=== PATIENT | male | born 1970 | race Caucasian/White ===

== ENCOUNTER 2022-02-05 03:23 | Outpatient (CLI) | payer BC, SELFPAY ==
[2022-02-05 08:21] LABS: Abs Immature Grans 0.05 10^3/uL (0.0-0.06); Absolute Basophil Count 0.06 10^3/uL (0.0-0.2); Absolute Lymphocyte Count 3.27 10^3/uL (1.2-3.4); Absolute Monocyte Count 0.97 10^3/uL (0.1-0.8); Basophils % 0.5; HGB 15.7 g/dL (13.5-17.5); Immature Grans % 0.4; Lymphocytes % 29.1; MCH 32.7 pg (27.0-33.0); MCHC 34.1 % (32.0-36.0); MCV 96 fL (80-95); MPV 8.5 fL (8.0-11.0); Monocytes % 8.6; Neutrophils % 59.4; Platelet Count 275 10^3/uL (130-400); RDW 12.5 % (11.8-14.1); RDW-SD 44.6 fL; WBC 11.23 10^3/uL (4.4-10.8)
[2022-02-05 08:23] LABS: Absolute Eosinophil Count 0.22 10^3/uL (0.0-0.7); Absolute Neutrophil Count 6.67 10^3/uL (1.2-6.7)
[2022-02-05 08:50] LABS: Anion Gap 7.7 mmol/L (3-11); BUN 8 mg/dL (7-18); CO2 26.3 mmol/L (21.0-32.0); CREATININE 0.9 mg/dL (0.70-1.30); Calcium 8.9 mg/dL (8.5-10.1); Calculated LDL 188 mg/dL (<100); Chloride 105 mmol/L (98-107); Cholesterol 282 mg/dL (<200); Estimated GFR 104.05 (mL/min/1.73m2); Glucose 99 mg/dL (74-106); HDL Cholesterol 60 mg/dL (40-60); Potassium 4.3 mmol/L (3.5-5.1); Sodium 139 mmol/L (136-145); Triglyceride 172 mg/dL (<150)
== END 2022-02-05 03:24 | disposition home or self-care (01) ==
LOC: LBO 03:23
PROVIDERS: PCP Nurse Practitioner Family; Visit Provider Nurse Practitioner Family
DX: Z00.00 Encounter for general adult medical examination without abnormal findings (principal); I10 Essential (primary) hypertension
CPT/HCPCS: 36415; 80048; 80061; 83735; 85025

== ENCOUNTER 2023-01-23 06:13 | Day surgery (SDC) | payer BC, SELFPAY ==
--- NOTE | 2023-01-22 17:36 | HPE_ITS ---
Date of service: 01/23/23 Time of Service: 07:24 Assessment and Plan Assessment and plan (1) Colon cancer screening: Status: Acute Assessment and plan: Plan: Colonoscopy w/ general & natural airway. The?patient will be scheduled by my office. The pt understands that they need to do a bowel prep and the importance of hydration during this.? The patient understands there is a theoretical risk of renal failure.? For healthy patients we use Gatorade/Miralax Prep.? ?For anyone with renal concerns- GoLytely will be used. Plavix and coumadin will need to be held except in unusual circumstances. ? Patients in A. Fib do not need to be bridged with Lovenox or on CVA prophylaxis.? A baby ASA can be continued but full dose ASA needs to be stopped for 10 days prior to the procedure. A complete H & P is required within 30 days of the procedure.? GETA w/natural airway is used for the colonoscopy.? Informed consent is obtained for the procedural (explained in simple layman's terms that?the pt and/or family could understand) explaining risks vs benefits and alternatives to the procedure and consequences if we do not do the procedure and need/rational for the procedure. Risks include but are not limited to: bleeding, infection, perforation of colon.? This would necessitate emergency surgery to repair the damage w/ possible ostomy; and other associated complications w/ the required surgery. ? Also complications of anesthesia including aspiration, ND/CVA/, inability to complete the procedure. I discussed with the?patient would they could expect during the procedure, post procedure and recovery time and risks.? The patient understands that they need to have a ride home after the procedure.? The patient was given all this information in writing and expressed understanding. If there are any questions or concerns please feel free to contact our office.? Generally Colonoscopy does not require antibiotics prophylaxis, (2) Smoker: Status: Acute (3) Hyperlipidemia: Status: Acute (4) Insomnia: Status: Acute (5) Hypertension: Status: Chronic (6) Erectile dysfunction: Status: Acute History of Present Illness Narrative: Patient is here today for colonoscopy for CRC screening.??? They completed a bowel prep with just a clear yellow residual effluent.? They not having any chest pain or shortness of breath, currently.? They are not experiencing any fever or chills.? They deny any productive cough or upper respiratory tract infection signs or symptoms.? They are not having abdominal pain, or nausea and vomiting.? They have not had any changes in medications, past medical history or past surgical history since previously being seen in the office. They have not had any accidents or have been in the ER since the clinic pre-operative evaluation. ??I reviewed the procedure with the patient today, including risks and benefits of the procedure, and what they could expect at home for recovery.? All questions are answered to the patient?s satisfaction today, and they are stable to proceed with the proposed procedure. Patient states when he had his appendix out in the second grade he had polyps and they took part of his intestine. He denies any abdominal pain. He denies any problems with constipation or diarrhea. He does not notice blood in the stool. His weight has been stable. Anesthesia: general (without airway) Previous surgical intolerances: No Previous surgical complications: No Pulmonary risk factors: none Planned procedure: Yes Sleep apnea risks: No Can climb one flight of stairs (12-13 steps) in less than 30 seconds without stopping and without symptoms: Yes The surgery proposed for this patient is: low risk Active cardiac conditions: HTN- well controlled Active risk factors: none ASA (acetylsalicylic acid): not used Beta blockers: not used Mr. Leyva is a pleasant 52-year-old gentleman who I did a phone interview for his first screening colonoscopy. He is healthy. His past medical history is significant for hypertension and hyperlipidemia which are both well controlled. He has no family history of colon cancer that he is aware of. He has not had any changes in bowel habits, hematochezia, melena, unintentional weight loss, nausea or vomiting. He has no abdominal pain. He has no cardiovascular history. He has not had any chest pain or shortness of breath at rest or with activity. Review of Systems All systems reviewed & are unremarkable except as noted in HPI and below PFSH All Active Problems (Updated 01/22/23 @ 17:46 by Susan Tran DO) Screening for malignant neoplasm of colon performed (Acute) Colon cancer screening (Acute) Hyperlipidemia (Acute) Smoker (Acute) 1 pack per day Erectile dysfunction (Acute) Insomnia (Acute 03/07/13) Hypertension (Chronic) Medical History Hx of cardiac murmur per pt.f/u with PCP Surgical History H/O vasectomy Appendectomy (~1981) Family History Mother No problems noted. Father Asthma Heart disease Sister Asthma Son No problems noted. Daughter Asthma Maternal Grandfather , 76 Diabetes Paternal Grandfather , 37 No problems noted. Maternal Grandmother Heart disease Paternal Grandmother , 66 No problems noted. Social History Smoking/Tobacco Use Status: Current every day Tobacco Type: cigarettes Quit status: has quit before Second Hand Exposure: No Smoking risk assessment performed?: Yes Alcohol Intake: current Alcohol Intake frequency: a few times a week Alcohol type: beer Drug use: Never Substance use type: does not use Details: pt's mother had N/V post op Caregiver/Support person: No Household members: spouse Housing: house Communication Needs: None Do you need help understanding health information?: Never Pets and animals: Yes Pets and animals: dog(s) Sexually active: Yes Do you think of yourself as: straight/heterosexual Current gender identity: male What is your relationship status?: How often do you talk on the phone with friends or family?: three or more times per week How often do you get together with friends or relatives?: once per week How often do you attend religious or congregation services?: 1-3 times per year Do you belong to any clubs or organized social groups?: yes Panel score (0-1 are the most socially isolated patients): 3 Seatbelt use: always Helmet use: Yes Drive intox or ride w/intox driver/sales workers: No Do you feel safe at home: Yes Do you feel safe in your relationship?: Yes Meds Allergies and Home Medications Allergies Allergy/AdvReac Type Severity Reaction Status Date / Time No Known Allergies Allergy Verified 01/23/23 06:31 Home Medications Medication Instructions Recorded Confirmed Type ibuprofen 800 mg tablet 800 mg PO DIRECTED 03/07/13 01/21/23 History atorvastatin 20 mg tablet 20 mg PO QHS #90 tabs 03/13/22 01/23/23 Rx lisinopril 10 mg tablet 10 mg PO DAILY #90 tabs 06/11/22 01/23/23 Rx tadalafil 10 mg tablet 10 mg PO DAILY PRN sexual activity 12/05/22 01/23/23 Rx #30 tabs Exam Const Other: PHYSICAL EXAM GENERAL APPEARANCE: Alert, healthy appearance, oriented, x 3,? in no acute distress HYDRATION: Well hydrated HEAD, EYES, EARS, NECK, THROAT: Head is normocephalic, pupils equal, round, reactive to light and accommodation, ocular movement intact, sclera clear and no jaundice. ?Dentition intact. LUNGS: normal respiration/normal chest excursion. ?Clear to auscultation bilaterally. ?No wheeze. ?HEART: Regular rate and rhythm. no murmurs ABDOMEN: soft and non-tender to palpation.? Normal bowel sounds.? Time Spent Time spent with Patient: <40 minutes Time was spent: preparing to see the patient(eg.review tests), obtaining and/or reviewing separately otained hiistory, ordering medications,tests, procedures, referring, communicating with other health day care center director, indepentently int erpreting results, counseling the patient and care coordination
--- NOTE | 2023-01-22 17:43 | PDOC.DSDIS_ITS ---
Date of service: 01/23/23 Time of Service: 08:07 Discharge Plan Disposition Patient Disposition: Home Condition: Good Discharge Details Reason For Visit: colon can screening Attending Provider: Susan Tran Primary Care Provider: Edmond Villasenor Home Meds and New Rx's Prescriptions: Continued atorvastatin 20 mg tablet 20 mg PO QHS Qty: 90 3RF ibuprofen 800 MG tablet 800 mg PO DIRECTED Rx Instructions: TAKE AT ONSET OF MIGRAINE lisinopril 10 mg tablet 10 mg PO DAILY Qty: 90 3RF tadalafil 10 mg tablet 10 mg PO DAILY PRN (Reason: sexual activity) Qty: 30 3RF Rx Instructions: administer approximately 30min before sexual activity; do not use more than 1 dose per 24hrs Discontinued bisacodyl [Dulcolax (bisacodyl)] 5 mg tablet,delayed release (DR/EC) 5 mg PO ONCE Qty: 4 0RF Rx Instructions: Take as directed for your colonoscopy polyethylene glycol 3350 17 gram powder in packet 255 g PO DAILY Qty: 15 0RF Rx Instructions: Mix 255 gm in 64 oz of gatorade or juice. Drink as directed Discharge Instructions Additional Instructions: DSU Colonoscopy Post- Op Instructions Instructions for Everyone who is given Anesthesia: For your safety, please do the following for the next twenty-four (24) hours: *Do Not operate a motor vehicle (car, truck, motorcycle, etc.) *Do Not drink alcoholic beverages or use any recreational drugs for the first 24 hours or while taking pain medications. The medications in your body may have a reaction that can be dangerous. *Do Not make any important decisions or sign any important papers. Findings: -Small polyp Follow up: -My office will send a letter in 2 to 3 weeks time with the results of the pathology and when we want you to repeat the colonoscopy. 1. No lifting over 20 pounds or strenuous activity for the first 24 hours after your procedure. After 24 hours there are no restrictions on your activity but you may feel fatigued for a few days. 2. After you arrive home you may have a light meal and return to your normal diet as you can tolerate it without feeling sick to your stomach. 3. You may have a bloated, gaseous feeling in your belly (abdomen) after a colonoscopy. Passing gas and belching will help. Walking or lying down on your left side with your knees flexed may relieve the discomfort. Call the office at [phone] (Office) or [phone] (Hospital) right away if you notice any of the following: a.Vomiting of blood or ?coffee ground stools?. b.Rectal bleeding 1Tbsp, blood clots or continuous bleeding. c.Severe belly (abdominal) pain. d.A hard distended belly (abdomen) and an inability to pass gas. 4. Please don?t expect to have a normal BM (bowel movement) for 2-3 days after your procedure. 5. If there are questions regarding the findings of your procedure, please contact your doctor 6. If you are unable to contact your doctor with a problem, contact the hospital at [phone]. 7. Continue all your regular medications unless directed otherwise. I understand the above instructions and have no questions. Signature of Patient or Adult Escort Name of Responsible Adult Escort Signature of Nurse Date/Time Stand Alone Forms: Anesthesia Discharge InstEvgeny Azul (DSU) Activity:: see above Diet:: see above Discharge Orders Discharge Orders: Discharge Order (Routine); Ordered 01/23/23 Ordered By: Susan M Stoiber DS: Diagnosis Discharge Diagnosis (1) Screening for malignant neoplasm of colon performed: Status: Acute Asessment and Plan: The patient is seen and examined after their colonoscopy.? The patient has been able to pass gas.? They are not having abdominal pain.? They have been able to tolerate liquids and a snack.? They do not have any nausea or vomiting.? They are not having any chest pain or shortness of breath.??? They are not having any rectal bleeding. Their vital signs have been stable-see nursing notes. We discussed findings during their colonoscopy, and any biopsies that were done/polyps that were removed. The patient will be sent a letter with any biopsy results, and when to repeat the colonoscopy.-see discharge instructions. Patient was given explicit instructions to follow-up regarding colonoscopy-refer to discharge instructions.? We reviewed resumption of medications. Patient verbalized understanding and discharged in stable and satisfactory condition- See nursing notes. (2) Smoker: Status: Acute (3) Hyperlipidemia: Status: Acute (4) Insomnia: Status: Acute (5) Hypertension: Status: Chronic (6) Erectile dysfunction: Status: Acute
--- NOTE | 2023-01-22 17:48 | COLE_ITS ---
Date of service: 01/23/23 Time of Service: 08:03 Colonoscopy Report Date of procedure: 01/23/23 Pre-op diagnosis general: CRC screening Post-op diagnosis procedure note: other (Polyp) Surgeon: Susan Tran Anesthesia Type: General:No Airway Estimated blood loss (mL): 1 Pathology: other Complications: None Disposition: same day Prep: Miralax/Dulcolax Procedure Description: After informed consent was obtained the patient was taken to the procedure room and placed in a left decubitous position. Monitors were applied and a time out was done. The patients name, date of , procedure, allergies to medications and metal in their body was reviewed. The patient was then sedated. Once sedated and comfortable a rectal exam was done. External exam was normal. Internal exam revealed a normal sphincter tone and no palpable masses. The prost ate normal. The scope was then introduced and retrofelexed. No internal hemorrhoids were identified. The scope was then advanced to the cecum without difficulty. The TI and appendiceal orifice were identified. The ileocecal valve is present and intact. It was intubated and the terminal ileum appears normal. The prep was BBPS 3 in all segments for total of 9. The scope was then slowly retracted over 12 minutes back into the rectum. He had a flat 5 mm polyp at 70 cm that is removed with a cold biting forcep. All specimen is retrieved and no bleeding is noted. There are no diverticula or AVMs. The mucosa is otherwise pink and healthy. The scope was removed and the patient was woken up and taken back to Same day surgery in stable condition. The patient tolerated the procedure well and there were no immediate complications. Follow up: The patient should follow up in 7-10 years time, path pending unless they develop changes in bowel habits or other new gastrointestinal complaints.
[2023-01-23 06:22] VITALS: BP 158/99; PULSE 78; RESP 17; TEMP 36.2; O2SAT 99
[2023-01-23] MEDS: Lactated Ringers 1,000 ML 80 ML IV (06:43)
--- NOTE | 2023-01-23 07:15 | W.ANESPRE ---
General Info Date of Service Date Performed: 01/23/23 Height: 5 ft 6 in Weight: 71.2 kg Body Mass Index (BMI): 25.3 Surgical Procedure: Operation Date: 01/23/23 07:35 Proposed Procedure Side Surgeon tobi Tran, Meds Allergies and Home Medications Allergies Allergy/AdvReac Type Severity Reaction Status Date / Time No Known Allergies Allergy Verified 01/23/23 06:31 Home Medication Medication Instructions Recorded ibuprofen 800 mg tablet 800 mg PO DIRECTED 03/07/13 atorvastatin 20 mg tablet 20 mg PO QHS #90 tabs 03/13/22 lisinopril 10 mg tablet 10 mg PO DAILY #90 tabs 06/11/22 tadalafil 10 mg tablet 10 mg PO DAILY PRN sexual activity 12/05/22 #30 tabs Current Visit Medications: Current Medications Generic Name Dose Route Start Last Admin Trade Name Freq PRN Reason Stop Dose Admin Hyoscyamine Sulfate 0.125 mg 01/23/23 10:20 Hyoscyamine 0.125 Mg Sl/Oral/Chew SL 02/22/23 10:19 DIRECTED PRN Ringer's Solution 1,000 mls @ 0 mls/hr 01/23/23 06:00 01/23/23 06:43 IV 02/21/23 23:59 80 mls/hr INFUSION ÁLVARO Administration IV Miscellaneous Supplies 1 each 01/23/23 06:00 Iv Access IV 02/21/23 23:59 DIRECTED ÁLVARO Ondansetron HCl 4 mg 01/23/23 10:20 Ondansetron 4 Mg/2 Ml Vial IVP 02/22/23 10:19 Q4H PRN PRN Nausea / Vomiting Sodium Chloride 0 ml 01/23/23 06:00 Normal Saline Flush 10 Ml Syr IV 02/21/23 23:59 PRN PRN Sodium Chloride 0 ml 01/23/23 06:00 Normal Saline 10 Ml Vial IJ 02/21/23 23:59 DIRECTED PRN Sterile Water 0 ml 01/23/23 06:00 Water,Injection,Sterile 10 Ml Vial IJ 02/21/23 23:59 DIRECTED PRN PFSH Active Problems Active Problems: Problem Status Onset Code Screening for malignant neoplasm of colon performed Z12.11 Colon cancer screening Z12.11 Hyperlipidemia E78.5 Smoker F17.200 Erectile dysfunction N52.9 Insomnia 03/07/13 G47.00 Hypertension I10 Medical History Medical History Hx of cardiac murmur per pt.f/u with PCP Surgical History Surgical History H/O vasectomy Appendectomy (~1981) Tobacco Smoking/Tobacco Use Status: Current every day Tobacco Type: cigarettes Passive smoking exposure: No Second hand exposure: No Alcohol Alcohol Intake: current Alcohol intake frequency: a few times a week Alcohol type: beer Substance Use Substance use: Never Substance use type: does not use Details: pt's mother had N/V post op Vital Signs and Lab Results Vital Signs Most Recent Vital Signs in EMR: Most Recent Vital Signs Temp Pulse Resp BP Pulse Ox 36.2 C L 78 17 158/99 H 99 01/23/23 06:22 01/23/23 06:22 01/23/23 06:22 01/23/23 06:22 01/23/23 06:22 Lab Results Blood Type / Crossmatch: No Data to Display Complete Blood Count: No Data to Display Complete Metabolic Panel: No Data to Display Liver Function Panel: No Data to Display Coagulation Panel: No Data to Display Cardiac Panel: No Data to Display Arterial Blood Gas: No Data to Display Venous Blood Gas: No Data to Display Pancreas Panel: No Data to Display Thyroid Panel: No Data to Display Infectious Disease: No Data to Display Blood Cultures: No Data to Display Toxicology Panel: No Data to Display Anesthesia Assessment and Plan Anesthesia History Personal History: No History of Anesthesia Complications Family History: Other Exercise Tolerance Exercise Tolerance: Metabolic Equivalents>4 Pertinent Negatives Pertinent Negatives: No Symptoms of GERD and No Major Pulmonary Symptoms or Complaints Cardiac & Pulmonary Exam Cardiac Exam: Normal S1/S2 Heart Sounds Pulmonary Exam: Clear Bilateral Breath Sounds Implantable Cardiac Device Does patient have a Pacemaker or an ICD?: No Airway Exam Known Difficult Airway: No Mallampati Class: 2 Mouth Opening: Normal (> 3cm) Thyromental Distance: Greater than 3 cm Neck Range of Motion: Full ROM Neck Circumference: Normal Teeth Condition: Normal Dentition ASA Classification ASA Score: ASA 2 Emergency Case?: No NPO Status NPO Status: NPO Clears >2 hours, Solids >8 hours Anesthesia Plan Resuscitation Status: Full Code Anesthesia Technique: General Anesthesia Airway Planned: Natural Airway Monitors Used: Standard Monitors
[2023-01-23 07:16] VITALS: BMI 25.3
--- NOTE | 2023-01-23 07:42 | BOWEL_PTH ---
PATIENT: Brian Leyva JR LOC: [facility] U#:[id number] AGE/SX: 52/M ROOM: RE01/23/[address]: Susan Tran : 1970 BED: DIS: 01/23/2023 SPEC #: [id number] RECD: 01/23/23 12:51 STATUS: ABIGAIL REQ #: [id number] PERCY: 01/23/23 07:[address]: Susan Tran DEPT: Surgical Specimen RECD BY: Shaylee More ENTERED: 01/23/23 12:51 SP TYPE: Bowel OTHR DR: Edmond Villasenor, [employer]ATING [employer] OPERATOR Tissues: 1 - BIOPSY BOWEL Procedures: GROSS AND MICRO LEVEL 4 Comments: [id number]
[2023-01-23 08:00] VITALS: BP 124/93; PULSE 68; RESP 16; TEMP 36.4; O2SAT 99
--- NOTE | 2023-01-23 08:29 | W.ANESPOSTOP ---
Postoperative Evaluation Date, Time and Location Date Performed: 01/23/23 Time Performed: 08:15 Patient Location: Day Surgery Unit Vital Signs Most Recent Imported Vital Signs: Most Recent Vital Signs Temp Pulse Resp BP Pulse Ox 36.4 C L 68 16 124/93 H 99 01/23/23 08:00 01/23/23 08:00 01/23/23 08:00 01/23/23 08:00 01/23/23 08:00 Pain Score Most Recent Pain Score: Most Recent Pain Score Pain Level 0 01/23/23 08:00 Assessment Mental Status: Awake (Alert & Oriented to Patient Baseline) Airway and Respiratory Function: Patent airway with normal (patient baseline) respiratory exam Cardiovascular Function: Hemodynamically Stable Hydration Status: Adequately Hydrated Nausea & Vomiting: No Nausea or Vomiting Pain: Pt. Denies Any Pain Peripheral Nerve Block: Patient did not receive a nerve block
[2023-01-23 08:31] VITALS: BP 136/95; PULSE 66; RESP 16; TEMP 36.6; O2SAT 98
== END 2023-01-23 08:50 | disposition home or self-care (01) ==
LOC: SUR 06:14
PROVIDERS: PCP Nurse Practitioner Family; Visit Provider Surgery
PROC: 0DJD8ZZ Inspection of Lower Intestinal Tract, Via Natural or Artificial Opening Endoscopic (ICD-10-PCS; CPT 45378; principal; 2023-01-23 07:30)
DX: Z12.11 Encounter for screening for malignant neoplasm of colon (principal); K63.5 Polyp of colon; F17.210 Nicotine dependence, cigarettes, uncomplicated; I10 Essential (primary) hypertension
CPT/HCPCS: 45380; 00123; 88305; 99221

== ENCOUNTER 2023-03-24 04:54 | Outpatient (CLI) | payer BC, SELFPAY ==
[2023-03-24 08:16] LABS: Hemoglobin A1C 5.8 % (<5.7)
[2023-03-24 09:01] LABS: Calculated LDL 118 mg/dL (<100); Cholesterol 202 mg/dL (<200); Estimated GFR 91.12 (mL/min/1.73m2); HDL Cholesterol 75 mg/dL (40-60); Potassium 4.7 mmol/L (3.5-5.1); Triglyceride 47 mg/dL (<150)
== END 2023-03-24 04:55 | disposition home or self-care (01) ==
LOC: LBO 04:54
PROVIDERS: PCP Nurse Practitioner Family; Visit Provider Nurse Practitioner Family
DX: I10 Essential (primary) hypertension (principal); E78.5 Hyperlipidemia, unspecified; Z13.1 Encounter for screening for diabetes mellitus
CPT/HCPCS: 36415; 80061; 82565; 83036; 84132

== ENCOUNTER 2023-12-08 02:12 | Outpatient (CLI) | payer BC, SELFPAY ==
--- NOTE | 2023-12-08 08:00 | DI.RAD_ITS ---
Exam(s) XR CHEST 2V PA LATERAL EXAM: XR CHEST 2V PA LATERAL CLINICAL HISTORY: Chronic cough,smoker,HYPERTENSION,PREOP TECHNIQUE: 2D digital imaging was performed. Two views. COMPARISON: No exams were available for comparison FINDINGS: HEART: Normal size. Aorta: Not dilated. PULMONARY VASCULATURE: Normal. MEDIASTINUM: Unremarkable. LUNGS: Clear. PLEURAL SPACE: No pleural effusion or pneumothorax. BONE:Unremarkable for age. SOFT TISSUES: Unremarkable. IMPRESSION: No acute abnormality. DATA REPOSITORY: RADIATION DOSE DELIVERED:
== END 2023-12-08 02:32 ==
LOC: DI 02:12
PROVIDERS: PCP Nurse Practitioner Family; Visit Provider Surgery
DX: R05.3 Chronic cough (principal); I10 Essential (primary) hypertension; E78.2 Mixed hyperlipidemia
CPT/HCPCS: 71046

== ENCOUNTER 2024-01-12 06:13 | Day surgery (SDC) | payer BC, SELFPAY ==
--- NOTE | 2024-01-11 10:14 | PDOC.DSDIS_ITS ---
Date of service: 01/12/24 Time of Service: 09:14 Discharge Plan Disposition Patient Disposition: Home Condition: Good Discharge Details Reason For Visit: left inguinal hernia repair Attending Provider: Susan Tran Primary Care Provider: Edmond Villasenor Home Meds and New Rx's Prescriptions: New tramadol 50 mg tablet 50 mg PO Q4H PRNQty: 14 0RF Continued atorvastatin 20 mg tablet 20 mg PO QHS Qty: 90 3RF lisinopril 20 mg tablet 20 mg PO DAILY Qty: 90 3RF ibuprofen 800 mg tablet 800 mg PO DIRECTED Qty: 90 3RF Rx Instructions: TAKE AT ONSET OF MIGRAINE magnesium 200 mg tablet 200 mg PO HS cholecalciferol (vitamin D3) 125 mcg (5,000 unit) capsule 125 mcg PO DAILY vitamin B complex-folic acid [Super B Maxi Complex] 0.4 mg tablet 1 tab PO DAILY tadalafil 10 mg tablet 10 mg PO DAILY PRN (Reason: sexual activity) Qty: 30 3RF Rx Instructions: administer approximately 30min before sexual activity; do not use more than 1 dose per 24hrs Held aspirin 81 mg tablet,delayed release (DR/EC) 81 mg PO DAILY Hold Instructions: Resume on 01/26/24. Discharge Instructions Additional Instructions: Dr. Tran HERNIA REPAIR ? POSTOPERATIVE INSTRUCTIONS Patients who have this type of surgery can usually be expected to return to work within two weeks and have minimal amounts of discomfort. ? ACTIVITY: The day of surgery should be spent resting. However, you can be up for short periods of time, I.E., going to the bathroom or kitchen. Avoid lifting or straining. On the day following surgery, you can be up and about as desired. ? LIFTING: Restrict your lifting to no more than five (5) pounds for two weeks after surgery. ??We will decide when you are done with restrictions and when you can return to work, at your follow-up appointment.? No sexual activity for two weeks.? ? DIET: There are no dietary restrictions following surgery. However, you may want to start with small amounts of liquids to avoid nausea the day of surgery. ? INCISION CARE: You will notice purple skin glue closing the incision.? Do not peel this off- it will wear off on its own.? After 24 hours you may shower. The dressing may be replaced for comfort, but is not necessary. ?An ice bag may be applied to the incision for 72 hours following surgery. ? SIGNS OF INFECTION: It is not unusual to have some black and blue discoloration of the skin around the incision, but also scrotum and penis.? ?It will slowly disappear. If you have any increased redness, drainage, fever (above 100 degrees), please contact your doctor for an examination. ? DISCOMFORT: You may expect to have some mild discomfort at the incision sight. If severe pain develops you should contact your doctor for further instructions. ? URINATION: Patients who have surgery occasionally have problems urinating. If you experience problems and are not able to urinate within 6 hours following your surgery, please call your doctor immediately or go to your nearest Emergency Room for evaluation. ? DRIVING: NO driving for three (3) days after surgery, or if you are still taking narcotic pain medication.? ? MEDICATIONS: Alternate Tylenol 1000mg by mouth every 8 hours and Ibuprofen 600mg every 6 hours. ?Make sure you take ibuprofen with food and not on an empty stomach. ?Take the Tylenol and ibuprofen continuously for the first 72hrs- not just when you have pain.? Use the tramadol for breakthrough pain/pain >7.? Use ICE!?? Twenty minutes on, and then off, continuously for the first 72hours. If you are taking narcotic pain medication, follow the instructions on the label and do not drive. Pain medications can make you very constipated. Make sure you are moving your bowels daily. If not, take Miralax or Milk of Magnesia.?? Anesthesia makes you very constipated.? Take a dose of milk of magnesia the morning after surgery. ? REPORT: Unusual swelling, severe pain, unresolved nausea, signs of infection, or difficulty in urination to your surgeon. Follow up in clinic with Dr. Tran in 2 weeks.? [phone] Activity:: see above Remove Dressings/Wound Care:: 24 hours Shower/Bathe:: 24 hours Diet:: As Tolerated DS: Diagnosis Discharge Diagnosis (1) Hypertension: Status: Chronic (2) Hyperlipidemia: Status: Acute (3) Smoker: Status: Acute (4) Left inguinal hernia: Status: Acute Asessment and Plan: The patient is doing well post-op from their left inguinal hernia repair. ? They are having no nausea or vomiting. They are tolerating liquids and a snack. The pt is not having any chest pain or SOB.? Their pain is adequately controlled. They have been able to urinate.? ?HEENT:? no eye pain/drainage/redness/swelling. Mild sore throat ?Cardio- NSR, no chest pain, BP stable- see VS record ?Pulm: no sob or productive cough. No hemoptysis ?Incision- dressing is c/d/i w/ no excessive bleeding or drainage ?I discussed with the patient the findings at the time of surgery and the patient?s progress. ?We reviewed expectations at home; what the patient could expect for recovery time, and in the post-operative period.? We discussed the importance of walking to avoid blood clots and pneumonia.? We discussed and reviewed the patient's post-operative wound care and dressing needs.?? We reviewed their step-johnston pain management plan, Rx called to the pharmacy of their choice.? We reviewed activi ty and limitations-see discharge instructions. We reviewed warning signs, and when to seek medical attention- see d/c instructions.?? Patient was given a postoperative follow-up appointment. Patient verbalized understanding of their postoperative instructions, how do to take care of themselves and their incision, and the pain management plan. Please see discharge instructions.?
--- NOTE | 2024-01-11 10:18 | ROE_ITS ---
Date of service: 01/12/24 Time of Service: 09:15 Operative Note Operative Note DATE OF PROCEDURE: 01/12/24 PRE-OP DIAGNOSIS: left inguinal hernia POST-OP DIAGNOSIS: same indirect PROCEDURE: open left inguinal hernia repair w/ mesh SURGEON: Susan Ann HEAD ORTHOPEDIC TEAM PHYSICIAN: Sharda Richards ANESTHESIA TYPE: Local By Surgeon, General LMA/ETT and Primary Nerve Block Refer to Anesthesia Record ESTIMATED BLOOD LOSS: 5 PATHOLOGY: none sent COMPLICATIONS: None Patient was transported to: PACU Patient's condition: stable Procedure Description: INDICATIONS: The pt is here today for surgery regarding symptomatic --- inguinal hernia that has failed outpatient conservative medical management and he is here today for repair. Informed consent was obtained, explaining risks and benefits of the procedure including but not limited to bleeding, infection, pneumonia, blood clots, chronic pain, chronic numbness, damage to testicle resulting in removal, recurrence of hernia, reaction to Mesh necessitating removal, and other unforetold complications, and complications of anesthesia-which were addressed by the EMPLOYEE WELFARE MANAGER. The patient is marked in preOp prior to the procedure DESCRIPTION OF PROCEDURE:? The pt is then brought to the operative room suite. Anesthesia was administered per the Department of Anesthesia. ?A nerve block was performed by anesthesia under US guidance. The patient was prepped and draped in the usual sterile fashion using ChloraPrep scrub solution. Pause for the cause was done. He did receive preop IV antibiotics, and 30 mL of .25% Marcaine w/ epinephrine was used for local anesthetization. A #12 blade was used to make an incision over the external ring. Electrocautery used to provide hemostasis and dissect down to the fascia. The fascia was pretty much obliterated and there was nothing to open. The cord is elevated. The nerve was not identified. There small is a cord lipomas.? Electro-cautery is used to provide hemostasis. A Lynette drain was placed around the cord to assist in mobilization. The cord was explored. ?There was is indirect hernia sac on the cord. There is no direct hernia pushing through the floor. The hernia sac is dissected off the cord using a combination of blunt dissection and electrocautery.? Electrocautery is used to provide hemostasis.? He does have a patent process vaginalis that extends all the way down to the testicle and there is a small hydrocele as well. The hydrocele sac is excised off the testicle asa well. There are no contents within the hernia sac.? The hernia sac is than inverted and returned to the abdominal cavity.? A small size plug is than inserted into the defect through the internal ring, and over sewn to tighten up the ring with 2-0 vicryl.? Please see RN notes from Lot number of the Bard mesh patch/plug.? The cord structures are still able to freely move through the ring itself.? The patch was then placed onto the floor, and using 2-0 Vicryl, sewn into the pubic tubercle and the shelving portions of the inguinal ligament, in the standard Lichenstein fashion.? ?The tails of the mesh are brought around the cord, sewn together w/ 2-0 Vicryl, and tucked under the external oblique.? The wound was copiously irrigated. There was no bleeding noted. The drain was removed. All structures are returned to normal anatomical position. The nerve is not sewn into the mesh, nor caught up in any sutures. The external oblique is re-approximated using 2-0 vicryl in a running fashion. ?Deep tissue was approximated with 3-0 Vicryl in a running fashion, and skin was approximated with 4-0 Monocryl in a running subcuticular fashion. Skin glue and sterile dressings are applied. The patient tolerated the procedure without complications to recovery in stable condition. SUSAN ANN, DO
--- NOTE | 2024-01-11 10:19 | HPE_ITS ---
Date of service: 01/12/24 Time of Service: 07:34 Assessment and Plan Assessment and plan (1) Hypertension: Status: Chronic Qualifiers: Hypertension type: primary hypertension Qualified Code(s): I10 - Essential (primary) hypertension (2) Hyperlipidemia: Status: Acute Qualifiers: Hyperlipidemia type: mixed hyperlipidemia Qualified Code(s): E78.2 - Mixed hyperlipidemia (3) Smoker: Status: Acute (4) Left inguinal hernia: Status: Acute Assessment and plan: Risks of the surgery include but are not limited to: Bleeding/infection/pneumonia/damage to blood vessels or bladder or?bowels/blood clots or PE/chronic pain/urinary retention/chronic num bness/reoccurrence/reaction to mesh requiring removal/damage to testicle or sterility/complications of anesthesia.?We also discussed the possibility of postop urinary retention or bruising. ?The pt will have a pre-Op PE to ensure fitness for anesthesia, and preOp cardiac testing as deemed necessary. ?The procedure will be done with abx and under sterile conditions. This is an outpt day surgery.? ??The pt requires a ride home from surgery and someone to stay with the pt for 24 hrs after anesthesia.? No lifting over 5 pounds for 2-3 weeks after surgery.? Also take Miralax postop to avoid constipation. History of Present Illness Narrative: Today: Patient is here today for left inguinal hernia repair. ? They not having any chest pain or shortness of breath, currently.? They are not experiencing any fever or chills.? They deny any productive cough or upper respiratory tract infection signs or symptoms.? They are not having abdominal pain, or nausea and vomiting.? They have not had any changes in medications, past medical history or past surgical history since previously being seen in the office. They have not had any accidents or have been in the ER since the clinic pre-operative evaluation. ??I reviewed the procedure with the patient today, including risks and benefits of the procedure, and what they could expect at home for recovery.? All questions are answered to the patient?s satisfaction today, and they are stable to proceed with the proposed procedure. He has been about the same. Worse in the evening better in the morning. He has no significant pain today. clinic visit 11/22: RN: Pt here for Left inguinal hernia that he noted when he had a coughing spell about 2 months ago. Pt reports pain level today is a 5/10, pain increases with activity. Patient thinks that hernia started after coughing. The coughing is from his EVANGELISTA inhibitor. He does not cough that often he has been on the EVANGELISTA inhibitor for a while. I did advise the patient that if the coughing is that severe and that often that he should think about doing a different medication for his blood pressure as coughing could cause the hernia to recur. Patient is a smoker and has a high risk of hernia recurrence as it is. Patient states she does not cough that often. I do not feel the hernia is from coughing. gets cough from lisonpril. BM- no straining or straining. PSHX appendix. anesthesia- no comp smoker phms no HI?CVA no asthma no cpap no dm The patient presents for evaluation of left-sided hernia. He reports a persistent cough, which is not worsening. He is uncertain if he has undergone a screening CT scan for lung cancer. He denies any issues with bowel movements or urination, including constipation or straining. He has never undergone hernia repair, but has undergone an appendectomy in the past. He denies any complications with anesthesia. His only medical conditions include hypertension and hypercholesterolemia. He denies a history of heart attack, stroke, asthma, or diabetes. He does not require a CPAP mask during sleep. He underwent a colonoscopy last year without any issues. He regularly follows up with his primary care physician. His cough is a side effect of his blood pressure medication, which he describes as a dry, itchy throat. Review of Systems All systems reviewed & are unremarkable except as noted in HPI and below PFSH All Active Problems Chronic cough (Acute) Left inguinal hernia (Acute) Screening for malignant neoplasm of colon performed (Acute ~01/23/23) benign lymphoid tissue (lymph node) 10 years, [place] Hyperlipidemia (Acute) Smoker (Acute) 1 pack per day Erectile dysfunction (Acute) Insomnia (Acute 03/07/13) Hypertension (Chronic) Medical History Hx of cardiac murmur per pt.f/u with PCP Surgical History History of colonoscopy (~01/23/23) H/O vasectomy Appendectomy (~1981) Family History Mother No problems noted. Father Asthma Heart disease Sister Asthma Son No problems noted. Daughter Asthma Maternal Grandfather , 76 Diabetes Paternal Grandfather , 37 No problems noted. Maternal Grandmother Heart disease Paternal Grandmother , 66 No problems noted. Social History Smoking/Tobacco Use Status: Current every day Tobacco Type: cigarettes Quit status: has quit before Second Hand Exposure: Yes Smoking risk assessment performed?: Yes Alcohol Intake: current Alcohol Intake frequency: a few times a week Alcohol type: beer Drug use: Never Substance use type: does not use Details: Smoked cigarette at 0540 this morning. 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 Pets and animals: Yes Pets and animals: dog(s) Sexually active: Yes Do you think of yourself as: straight/heterosexual Current gender identity: male What is your relationship status?: How often do you talk on the phone with friends or family?: three or more times per week How often do you get together with friends or relatives?: three or more times per week How often do you attend congregational or presybeterian services?: 1-3 times per year Do you belong to any clubs or organized social groups?: no Panel score (0-1 are the most socially isolated patients): 2 What type of physical activity do you participate in: none Seatbelt use: always Helmet use: Yes Drive intox or ride w/intox driver education road instructor: No Working smoke detector in home: Yes Firearms in home: Yes Do you feel safe at home: Yes Do you feel safe in your relationship?: Yes Meds Allergies and Home Medications Allergies Allergy/AdvReac Type Severity Reaction Status Date / Time No Known Allergies Allergy Verified 01/12/24 06:18 Home Medications ?Medication ?Instructions ?Recorded ?Confirmed ?Type atorvastatin 20 mg tablet 20 mg PO QHS #90 tabs 03/16/23 01/12/24 Rx ibuprofen 800 mg tablet 800 mg PO DIRECTED #90 tabs 03/16/23 01/08/24 Rx lisinopril 20 mg tablet 20 mg PO DAILY #90 tabs 03/16/23 01/12/24 Rx aspirin 81 mg tablet,delayed 81 mg PO DAILY 11/23/23 01/08/24 History release cholecalciferol (vitamin D3) 125 125 mcg PO DAILY 11/23/23 01/12/24 History mcg (5,000 unit) capsule magnesium 200 mg tablet 200 mg PO HS 11/23/23 01/12/24 History vitamin B complex-folic acid 0.4 1 tab PO DAILY 11/23/23 01/08/24 History mg tablet (Super B Maxi Complex) tadalafil 10 mg tablet 10 mg PO DAILY PRN sexual activity 11/25/23 01/08/24 Rx #30 tabs tramadol 50 mg tablet 50 mg PO Q4H PRN #14 tabs 01/11/24 Rx Exam Narrative Exam Narrative: PHYSICAL EXAM GENERAL APPEARANCE: Alert, healthy appearance, oriented, x 3,? in no acute distress HYDRATION: Well hydrated HEAD, EYES, EARS, NECK, THROAT: Head is normocephalic, pupils equal, round, reactive to light and accommodation, ocular movement intact, sclera clear and no jaundice. ?Dentition intact. LUNGS: normal respiration/normal chest excursion. ?Clear to auscultation bilaterally. ?No wheeze. ?HEART: Regular rate and rhythm. no murmurs ABDOMEN: soft and non-tender to palpation.? Normal bowel sounds.? left inguinal hernia. Time Spent Time spent with Patient: <40 minutes Time was spent: preparing to see the patient(eg.review tests), obtaining and/or reviewing separately otained hiistory, ordering medications,tests, procedures, referring, communicating with other health child care giver, indepentently interpreting results, counseling the patient, care coordination and other
[2024-01-12] VITALS (17 sets, daily range): BP systolic 116–140; BP diastolic 70–86; PULSE 57–76; RESP 16–23; TEMP 36.2–36.8; O2SAT 94–100; BMI 24.5
--- NOTE | 2024-01-12 06:21 | W.ANESPRE ---
General Info Date of Service Date Performed: 01/12/24 Height: 5 ft 5 in Weight: 66.853 kg Body Mass Index (BMI): 24.5 Surgical Procedure: Operation Date: 01/12/24 07:40 Proposed Procedure Side Surgeon p Herniorrhaphy Inguinal w/Mesh Left Susan Tran DO Meds Allergies and Home Medications Allergies Allergy/AdvReac Type Severity Reaction Status Date / Time No Known Allergies Allergy Verified 01/12/24 06:18 Home Medication ?Medication ?Instructions ?Recorded atorvastatin 20 mg tablet 20 mg PO QHS #90 tabs 03/16/23 ibuprofen 800 mg tablet 800 mg PO DIRECTED #90 tabs 03/16/23 lisinopril 20 mg tablet 20 mg PO DAILY #90 tabs 03/16/23 aspirin 81 mg tablet,delayed 81 mg PO DAILY 11/23/23 release cholecalciferol (vitamin D3) 125 125 mcg PO DAILY 11/23/23 mcg (5,000 unit) capsule magnesium 200 mg tablet 200 mg PO HS 11/23/23 vitamin B complex-folic acid 0.4 1 tab PO DAILY 11/23/23 mg tablet (Super B Maxi Complex) tadalafil 10 mg tablet 10 mg PO DAILY PRN sexual activity 11/25/23 #30 tabs tramadol 50 mg tablet 50 mg PO Q4H PRN #14 tabs 01/11/24 Current Visit Medications: Current Medications Generic Name Dose Route Start Last Admin Trade Name Freq PRN Reason Stop Dose Admin Acetaminophen 1,000 mg 01/12/24 06:00 Acetaminophen 500 Mg Tab PO 02/10/24 23:59 PREOP ÁLVARO Gabapentin 600 mg 01/12/24 06:00 Gabapentin 300 Mg Cap PO 02/10/24 23:59 PREOP ÁLVARO Ringer's Solution 1,000 mls @ 80 mls/hr 01/12/24 06:00 IV 02/10/24 23:59 INFUSION ÁLVARO Cefazolin Sodium/Dextrose 2 gm in 50 mls @ 100 mls/hr 01/12/24 06:00 Ancef Duplex IVPB 02/10/24 23:59 PREOP ÁLVARO IV Miscellaneous Supplies 1 each 01/12/24 06:00 Iv Access IV 02/10/24 23:59 DIRECTED ÁLVARO Sodium Chloride 0 ml 01/12/24 06:00 Normal Saline Flush 10 Ml Syr IV 02/10/24 23:59 PRN PRN Sodium Chloride 0 ml 01/12/24 06:00 Normal Saline 10 Ml Vial IJ 02/10/24 23:59 DIRECTED PRN Sterile Water 0 ml 01/12/24 06:00 Water,Injection,Sterile 10 Ml Vial IJ 02/10/24 23:59 DIRECTED PRN PFSH Active Problems Active Problems: Problem Status Onset Code Chronic cough Acute R05.3 Left inguinal hernia Acute K40.90 Screening for malignant neoplasm of colon performed Acute ~01/23/23 Z12.11 Hyperlipidemia Acute E78.5 Smoker Acute F17.200 Erectile dysfunction Acute N52.9 Insomnia Acute 03/07/13 G47.00 Hypertension Chronic I10 Medical History Medical History Hx of cardiac murmur per pt.f/u with PCP Surgical History Surgical History History of colonoscopy (~01/23/23) H/O vasectomy Appendectomy (~1981) Tobacco Smoking/Tobacco Use Status: Current every day Tobacco Type: cigarettes Passive smoking exposure: Yes Second hand exposure: Yes Alcohol Alcohol Intake: current Alcohol intake frequency: a few times a week Alcohol type: beer Substance Use Substance use: Never Substance use type: does not use Vital Signs and Lab Results Vital Signs Most Recent Vital Signs in EMR: Temp Pulse Resp BP Pulse Ox 36.8 C 76 16 136/86 98 01/12/24 06:28 01/12/24 06:28 01/12/24 06:28 01/12/24 06:28 01/12/24 06:28 Lab Results Blood Type / Crossmatch: No Data to Display Complete Blood Count: No Data to Display Complete Metabolic Panel: No Data to Display Liver Function Panel: No Data to Display Coagulation Panel: No Data to Display Cardiac Panel: No Data to Display Arterial Blood Gas: No Data to Display Venous Blood Gas: No Data to Display Pancreas Panel: No Data to Display Thyroid Panel: No Data to Display Infectious Disease: No Data to Display Blood Cultures: No Data to Display Toxicology Panel: No Data to Display Anesthesia Assessment and Plan Anesthesia History Personal History: No History of Anesthesia Complications Family History: No Family History of Anesthesia Complications Exercise Tolerance Exercise Tolerance: Metabolic Equivalents>4 Pertinent Negatives Pertinent Negatives: No Symptoms of GERD, No Major Cardiovascular Symptoms or Complaints, No Major Pulmonary Symptoms or Complaints and No History of CVA/TIA Cardiac & Pulmonary Exam Cardiac Exam: Heart Murmur Present (known heart murmur) Pulmonary Exam: Clear Bilateral Breath Sounds Implantable Cardiac Device Does patient have a Pacemaker or an ICD?: No Airway Exam Known Difficult Airway: No Mallampati Class: 2 Mouth Opening: Normal (> 3cm) Thyromental Distance: Greater than 3 cm Neck Range of Motion: Full ROM Neck Circumference: Normal Teeth Condition: Normal Dentition ASA Classification ASA Score: ASA 2 Emergency Case?: No NPO Status NPO Status: NPO Clears >2 hours, Solids >8 hours Anesthesia Plan Resuscitation Status: Full Code Anesthesia Technique: General Anesthesia Airway Planned: LMA Pain Management: Surgeon and patient request nerve block Monitors Used: Standard Monitors Preoperative Comments:: 53 yo male for inguinal hernia repair. Sig PMHx: HTN (lisinopril), smoker, occ EtOH. chronic cough. Previous Anes: - colo, prop, natural airway, no issues.
[2024-01-12] MEDS: Lactated Ringers 1,000 ML 80 ML IV (06:36)
[2024-01-12] MEDS: Gabapentin 300 MG CAP 600 MG PO (06:37)
[2024-01-12] MEDS: Acetaminophen 500 MG TAB 1000 MG PO (06:37)
[2024-01-12] MEDS: ceFAZolin 2 GM/50 ML BAG IVPB (07:38)
[2024-01-12] MEDS: Bupivacaine 0.25% Pres-Free W/EPI 30 ML VIAL (08:10)
--- NOTE | 2024-01-12 09:49 | W.ANESPOSTOP ---
Postoperative Evaluation Date, Time and Location Date Performed: 01/12/24 Time Performed: 09:40 Patient Location: PACU Vital Signs Most Recent Imported Vital Signs: Most Recent Vital Signs Temp Pulse Resp BP Pulse Ox 36.5 C 63 20 116/84 96 01/12/24 09:45 01/12/24 09:20 01/12/24 09:25 01/12/24 09:20 01/12/24 09:25 Pain Score Most Recent Pain Score: Most Recent Pain Score Pain Level 0 01/12/24 09:45 Assessment Mental Status: Awake (Alert & Oriented to Patient Baseline) Airway and Respiratory Function: Patent airway with normal (patient baseline) respiratory exam Cardiovascular Function: Hemodynamically Stable Hydration Status: Adequately Hydrated Nausea & Vomiting: No Nausea or Vomiting Pain: Pain is tolerable per patient Peripheral Nerve Block: Regional nerve block not resolved at time of post operative discharge
--- NOTE | 2024-01-12 11:27 | W.PM.DSUDISC ---
Date of service: 01/12/24 Time of Service: 11:29 Discharge Plan Disposition Patient Disposition: Home Condition: Good Discharge Details Reason For Visit: left inguinal hernia repair Attending Provider: Susan Tran Primary Care Provider: Edmond Villasenor Home Meds and New Rx's Prescriptions: New tramadol 50 mg tablet 50 mg PO Q4H PRNQty: 14 0RF Continued atorvastatin 20 mg tablet 20 mg PO QHS Qty: 90 3RF lisinopril 20 mg tablet 20 mg PO DAILY Qty: 90 3RF ibuprofen 800 mg tablet 800 mg PO DIRECTED Qty: 90 3RF Rx Instructions: TAKE AT ONSET OF MIGRAINE magnesium 200 mg tablet 200 mg PO HS cholecalciferol (vitamin D3) 125 mcg (5,000 unit) capsule 125 mcg PO DAILY vitamin B complex-folic acid [Super B Maxi Complex] 0.4 mg tablet 1 tab PO DAILY tadalafil 10 mg tablet 10 mg PO DAILY PRN (Reason: sexual activity) Qty: 30 3RF Rx Instructions: administer approximately 30min before sexual activity; do not use more than 1 dose per 24hrs Held aspirin 81 mg tablet,delayed release (DR/EC) 81 mg PO DAILY Hold Instructions: Resume on 01/26/24. Discharge Instructions Additional Instructions: Dr. Tran HERNIA REPAIR ? POSTOPERATIVE INSTRUCTIONS Patients who have this type of surgery can usually be expected to return to work within two weeks and have minimal amounts of discomfort. ? ACTIVITY: The day of surgery should be spent resting. However, you can be up for short periods of time, I.E., going to the bathroom or kitchen. Avoid lifting or straining. On the day following surgery, you can be up and about as desired. ? LIFTING: Restrict your lifting to no more than five (5) pounds for two weeks after surgery. ??We will decide when you are done with restrictions and when you can return to work, at your follow-up appointment.? No sexual activity for two weeks.? ? DIET: There are no dietary restrictions following surgery. However, you may want to start with small amounts of liquids to avoid nausea the day of surgery. ? INCISION CARE: You will notice purple skin glue closing the incision.? Do not peel this off- it will wear off on its own.? After 24 hours you may shower. The dressing may be replaced for comfort, but is not necessary. ?An ice bag may be applied to the incision for 72 hours following surgery. ? SIGNS OF INFECTION: It is not unusual to have some black and blue discoloration of the skin around the incision, but also scrotum and penis.? ?It will slowly disappear. If you have any increased redness, drainage, fever (above 100 degrees), please contact your doctor for an examination. ? DISCOMFORT: You may expect to have some mild discomfort at the incision sight. If severe pain develops you should contact your doctor for further instructions. ? URINATION: Patients who have surgery occasionally have problems urinating. If you experience problems and are not able to urinate within 6 hours following your surgery, please call your doctor immediately or go to your nearest Emergency Room for evaluation. ? DRIVING: NO driving for three (3) days after surgery, or if you are still taking narcotic pain medication.? ? MEDICATIONS: Alternate Tylenol 1000mg by mouth every 8 hours and Ibuprofen 600mg every 6 hours. ?Make sure you take ibuprofen with food and not on an empty stomach. ?Take the Tylenol and ibuprofen continuously for the first 72hrs- not just when you have pain.? Use the tramadol for breakthrough pain/pain >7.? Use ICE!?? Twenty minutes on, and then off, continuously for the first 72hours. If you are taking narcotic pain medication, follow the instructions on the label and do not drive. Pain medications can make you very constipated. Make sure you are moving your bowels daily. If not, take Miralax or Milk of Magnesia.?? Anesthesia makes you very constipated.? Take a dose of milk of magnesia the morning after surgery. -Ketorolac eye drops to left eye every 6hrs as needed for pain. Should resolve in 24-48hrs. If pain persists longer than that time frame, please contact our office. ? REPORT: Unusual swelling, severe pain, unresolved nausea, signs of infection, or difficulty in urination to your surgeon. Follow up in clinic with Dr. Tran in 2 weeks.? [phone] Stand Alone Forms: Anesthesia Discharge Evgeny Medrano (DSU) Activity:: see above Remove Dressings/Wound Care:: 24 hours Shower/Bathe:: 24 hours Diet:: As Tolerated Discharge Orders Discharge Orders: Discharge Order (Routine); Ordered 01/12/24 Ordered By: Susan Tran DS: Diagnosis Discharge Diagnosis (1) Hypertension: Status: Chronic (2) Hyperlipidemia: Status: Acute (3) Smoker: Status: Acute (4) Left inguinal hernia: Status: Acute
--- NOTE | 2024-01-12 11:34 | W.ANESPOSTOP ---
Postoperative Evaluation Date, Time and Location Date Performed: 01/12/24 Time Performed: 11:34 Patient Location: PACU Vital Signs Most Recent Imported Vital Signs: Most Recent Vital Signs Temp Pulse Resp BP Pulse Ox 36.5 C 60 16 137/84 98 01/12/24 10:21 01/12/24 10:21 01/12/24 10:21 01/12/24 10:21 01/12/24 10:21 Most Recent Vital Signs Temp Pulse Resp BP Pulse Ox 36.5 C 63 20 116/84 96 01/12/24 09:45 01/12/24 09:20 01/12/24 09:25 01/12/24 09:20 01/12/24 09:25 Pain Score Most Recent Pain Score: Most Recent Pain Score Pain Level 4 01/12/24 10:21 Assessment Mental Status: Awake (Alert & Oriented to Patient Baseline) Airway and Respiratory Function: Patent airway with normal (patient baseline) respiratory exam Cardiovascular Function: Hemodynamically Stable Hydration Status: Adequately Hydrated Nausea & Vomiting: No Nausea or Vomiting Pain: Pain is tolerable per patient Peripheral Nerve Block: Patient did not receive a nerve block
--- NOTE | 2024-01-13 15:09 | W.ANESNERVE ---
Nerve Block Single Injection Procedure Date and Time Date Performed: 01/13/24 Procedure Start: 07:50 Location Where Procedure Performed Procedure Location: Operating Room Procedure Stop: 07:55 Reason Performed: Postoperative Analgesia Requesting Provider: Susan Tran Timeout Performed Timeout Performed: Yes Monitoring Used ECG, Blood Pressure, SpO2 and ETCO2 Sterility Sterility: Hand Hygiene, Surgical Cap, Surgical Mask, Sterile Gloves and Chlorhexidine Sedation Given During Procedure Sedation Given (Indicate Dose Given): No Sedation given Patient Mental Status Patient Mental Status: Performed under general anesthesia Nerve Block 1st Nerve Block: Laterality: Left Block Type: TAP Unilateral Ultrasound Image Saved?: Yes Needle / Catheter Used: 100mm SonoPlex II Local Anesthetic Bolus (Indicate Dose Given): Bupivacaine 0.25% Dose:: 7 mL and Exparel Dose:: 7 mL Additives (Indicate Dose Given): None Ultrasound: Sterile probe cover and gel used Nerve Stimulator: Not Used Paresthesia: None Procedure Tolerated: No Complications Procedure Outcome: Successful Performed By: Lei Roa
== END 2024-01-12 11:48 | disposition home or self-care (01) ==
PROVIDERS: PCP Nurse Practitioner Family; Visit Provider Surgery
PROC: (CPT 49505; principal; 2024-01-12 07:30)
DX: K40.90 Unilateral inguinal hernia, without obstruction or gangrene, not specified as recurrent
CPT/HCPCS: 49505; 76942; J3490; C1781; C9290; J0665; J0690; J1100; J1885; J2405; J2704

== ENCOUNTER 2024-03-31 08:11 | Outpatient (CLI) | payer BC, SELFPAY ==
[2024-03-31 07:52] LABS: Hemoglobin A1C 5.8 % (<5.7)
[2024-03-31 08:39] LABS: CREATININE 0.9 mg/dL (0.70-1.30); Calculated LDL 59 mg/dL (<100); Cholesterol 134 mg/dL (<200); Estimated GFR 102.76 (mL/min/1.73m2); HDL Cholesterol 67 mg/dL (40-60); Potassium 4.6 mmol/L (3.5-5.1); Triglyceride 40 mg/dL (<150)
== END 2024-03-31 08:12 | disposition home or self-care (01) ==
LOC: LBO 08:11
PROVIDERS: PCP Nurse Practitioner Family; Visit Provider Nurse Practitioner Family
DX: Z13.1 Encounter for screening for diabetes mellitus (principal); Z13.220 Encounter for screening for lipoid disorders; I10 Essential (primary) hypertension
CPT/HCPCS: 36415; 80061; 82565; 83036; 84132

== ENCOUNTER 2024-05-09 16:03 | Emergency (ER) | payer BC, SELFPAY ==
[2024-05-09 16:05] VITALS: BP 169/97; PULSE 87; RESP 16; TEMP 36.6; O2SAT 98
[2024-05-09 16:06] VITALS: BP 147/95; O2SAT 96
--- NOTE | 2024-05-09 16:07 | DI.CT_ITS ---
Exam(s) CT UPPER EXTREMITY LT W EXAM: CT UPPER EXTREMITY LT W CLINICAL HISTORY: Left bicep abscess TECHNIQUE: Imaging Protocol: Axial computed tomography images with coronal and sagittal reformatted images were created and reviewed. CONTRAST MATERIAL: Intravenous: Omnipaque 350 Contrast volume:100 mL contrast route:IV - COMPARISON: No exams were available for comparison FINDINGS: OSSEOUS: Bones of the the left clavicle, scapula, glenohumeral joint and left humerus are intact. Ra dial head and neck as well as proximal ulnar olecranon are intact. No fractures. No osseous lesions . No evidence of osteomyelitis. SOFT TISSUES: There is subtle abnormal heterogeneous density within the lateral aspect of the biceps muscle and there is overlying subcutaneous edema. This subtle heterogeneous area in the muscle kj ures approximately 9 cm craniocaudal length by 3.5 cm wide. There is no thrombosis of the adjacent subcutaneous veins in the upper arm. OTHER FINDINGS: There is extensive infiltrate in the partially visualized adjacent left lung. Also n odular infiltrate in the left upper lobe. No left pleural effusion evident. IMPRESSION: Subtle abnormal heterogeneity in the mid-lateral aspect of the biceps muscle in the upper left arm. Correlation with clinical history recommended. May be related to muscle tear-hematoma or developing abscess, despite absence of ring enhancement. Also cannot exclude subtle muscle neoplasm. There is overlying subcutaneous edema. The subcutaneous vessels in this region are not thrombosed. Incidentally noted is extensive infiltrate in the partially visualized left lung as well as a stellat e nodular infiltrate in the left upper lobe. No pleural effusion. Further chest imaging recommended . Findings called by myself to ER physician 05/09/2024 at 7:03 p.m. RADIATION DOSE DELIVERED: 926.36mGy.cm Total DLP DATA REPOSITORY: All CT scans at this facility are submitted to the National Radiology Data Registry (NRDR) Dose Index Registry (DIR) with the [employer] ([employer]). RADIATION OPTIMIZATION: All CT scans at this facility use at least one of these dose optimization te chniques: automated exposure control; mA and/or kV adjustment per patient size (includes targeted exa ms where dose is matched to clinical indication); or iterative reconstruction.
[2024-05-09 16:31] LABS: Abs Immature Grans 0.04 10^3/uL (0.0-0.06); Absolute Basophil Count 0.07 10^3/uL (0.0-0.2); Absolute Eosinophil Count 0.11 10^3/uL (0.0-0.7); Absolute Lymphocyte Count 2.34 10^3/uL (1.2-3.4); Absolute Monocyte Count 1.21 10^3/uL (0.1-0.8); Absolute Neutrophil Count 7.42 10^3/uL (1.2-6.7); Basophils % 0.6 %; HCT 43.8 % (40.0-50.0); HGB 14.9 g/dL (13.5-17.5); Immature Grans % 0.4 %; Lymphocytes % 20.9 %; MCH 31.6 pg (27.0-33.0); MCV 93 fL (80-95); Monocytes % 10.8 %; Neutrophils % 66.3 %; Platelet Count 346 10^3/uL (130-400); RBC 4.72 10^6/uL (4.36-5.78); RDW 12.1 % (11.8-14.1); RDW-SD 42.1 fL; WBC 11.19 10^3/uL (4.4-10.8)
[2024-05-09 16:39] LABS: Anion Gap 10.7 mmol/L (3-11); BUN 5 mg/dL (7-18); CO2 23.3 mmol/L (21.0-32.0); CREATININE 0.8 mg/dL (0.70-1.30); Calcium 8.9 mg/dL (8.5-10.1); Chloride 102 mmol/L (98-107); Estimated GFR 106.48 (mL/min/1.73m2); Glucose 91 mg/dL (74-106); Potassium 4.3 mmol/L (3.5-5.1); Sodium 136 mmol/L (136-145)
[2024-05-09] MEDS: PIPERACILLIN/TAZO 3.375 GM in Normal Saline 50 ML IVPB (16:43)
--- NOTE | 2024-05-09 16:43 | ED.GENADUL_ITS ---
Discharge Plan Discharge Details Chief Complaint: Cellulitis Clinical Impression: Abscess of arm, left Primary Care Provider: Edmond Villasenor ED Provider: Rishabh Shelton [place] Meds and New Rx's Prescriptions: New amoxicillin-pot clavulanate 875-125 mg tablet 1 tab PO BID 7 Days Qty: 14 0RF Continued ibuprofen 800 mg tablet 800 mg PO DIRECTED Qty: 90 3RF Rx Instructions: TAKE AT ONSET OF MIGRAINE magnesium 200 mg tablet 200 mg PO HS cholecalciferol (vitamin D3) 125 mcg (5,000 unit) capsule 125 mcg PO DAILY vitamin B complex-folic acid [Super B Maxi Complex] 0.4 mg tablet 1 tab PO DAILY aspirin 81 mg tablet,delayed release (DR/EC) 81 mg PO DAILY atorvastatin 20 mg tablet 20 mg PO QHS Qty: 90 3RF lisinopril 20 mg tablet 20 mg PO DAILY Qty: 90 3RF tadalafil 10 mg tablet 10 mg PO DAILY PRN (Reason: sexual activity) Qty: 30 3RF Rx Instructions: administer approximately 30min before sexual activity; do not use more than 1 dose per 24hrs HPI General Date/Time Provider Initiated Documentation: 05/09/24 16:05 . HPI Narrative: MDM This is an overall well-appearing normothermic and not tachycardic for 53-year-old male with left upper extremity abscess for which patient will undergo CT scan given complex nature of abscess. No pain out of proportion to suggest necrotizing soft tissue infection. Intact range of motion in left upper extremity so not concern for septic joint. I considered sepsis however the patient is not febrile tachycardic nor tachypneic so I did not order blood cultures nor treat empirically with broad-spectrum antibiotics. I spoke with Dr. Tran who previously seen the patient in her clinic and requested a CT with contrast and IV piperacillin/tazobactam. Patient is not an IV drug user and has not recently had a PICC line so I am not concerned for upper extremity DVT as I do not feel that the patient required a duplex. Left hand warm well- perfused so not concern for critical limb ischemia so I do not feel that the patient requires a CT angiogram with runoffs. 5:10 PM Signed patient out to Dr. Alonso pending CT scan. HPI The patient presents to the emergency room for evaluation of a left arm lesion. Approximately 3 weeks ago, he observed a lesion on his left arm resembling a spider bite, characterized by 2 puncture lopez. The area was itchy when rubbed. Initially, he applied bacitracin to the affected area, but the condition has since deteriorated. He reports no history of diabetes, intravenous drug use, or recent hospitalizations, except for a hernia surgery in 01/2024. He also reports no symptoms of shortness of breath, chest pain, or fever. He is not experiencing any pain at present. 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 He reports no history of thromboembolic events in his legs or lungs. Exam General: Well-appearing in no acute distress speaking in complete sentences. Head: Normocephalic, atraumatic. Eye: Extraocular eye movements intact. No conjunctival injection. No scleral icterus. Ear, nose, mouth, throat: Grossly normal inspection. Normal voice, handling secretions normally. Neck: Trachea midline. Cardiovascular: Well-perfused distal extremities. Respiratory: Nonlabored respiration. Gastrointestinal: Nondistended abdomen. Musculoskeletal: No edema. Moving all 4 extremities spontaneously. Skin: On the patient's left upper extremity, medial aspect proximal just distal to the axilla there is a small indurated erythematous approximately 2 x 2 cm area. On the lateral side of the patient's left upper extremity just inferior to the bicep there is an additional indurated and fluctuant area. Left hand warm well-perfused. 2+ left radial pulse. Cap refill less than 2 seconds left fingertips. Neurologic: Alert and appropriate, no apparent acute deficits. Psychiatric: Mood and manner are appropriate. Grooming and personal hygiene are appropriate. Related Data Home Medications ?Medication ?Instructions ?Recorded ?Confirmed ibuprofen 800 mg tablet 800 mg PO DIRECTED #90 tabs 03/16/23 05/09/24 aspirin 81 mg tablet,delayed 81 mg PO DAILY 11/23/23 05/09/24 release cholecalciferol (vitamin D3) 125 125 mcg PO DAILY 11/23/23 05/09/24 mcg (5,000 unit) capsule magnesium 200 mg tablet 200 mg PO HS 11/23/23 05/09/24 vitamin B complex-folic acid 0.4 1 tab PO DAILY 11/23/23 05/09/24 mg tablet (Super B Maxi Complex) atorvastatin 20 mg tablet 20 mg PO QHS #90 tabs 03/12/24 05/09/24 lisinopril 20 mg tablet 20 mg PO DAILY #90 tabs 03/12/24 05/09/24 tadalafil 10 mg tablet 10 mg PO DAILY PRN sexual activity 04/07/24 05/09/24 #30 tabs amoxicillin 875 mg-potassium 1 tab PO BID 7 days #14 tabs 05/09/24 clavulanate 125 mg tablet Previous Rx's ?Medication ?Instructions ?Recorded ibuprofen 800 mg tablet 800 mg PO DIRECTED #90 tabs 03/16/23 atorvastatin 20 mg tablet 20 mg PO QHS #90 tabs 03/12/24 lisinopril 20 mg tablet 20 mg PO DAILY #90 tabs 03/12/24 tadalafil 10 mg tablet 10 mg PO DAILY PRN sexual activity 04/07/24 #30 tabs amoxicillin 875 mg-potassium 1 tab PO BID 7 days #14 tabs 05/09/24 clavulanate 125 mg tablet Allergies Allergy/AdvReac Type Severity Reaction Status Date / Time No Known Allergies Allergy Verified 05/09/24 16:07 General Stated Complaint: Cellulitis FRANKIE: 3 Course Vital Signs Vital signs: Vital Signs Temperature 36.6 C 05/09/24 16:05 Pulse 87 05/09/24 16:05 Respiratory Rate 16 05/09/24 16:05 Blood Pressure 169/97 H 05/09/24 16:05 Pulse Oximetry 98 05/09/24 16:05 Temperature 36.6 C 05/09/24 16:05 Pulse 87 05/09/24 16:05 Respiratory Rate 16 05/09/24 16:05 Blood Pressure 147/95 H 05/09/24 16:06 Blood Pressure Position Sitting 05/09/24 16:06 Pulse Oximetry 96 05/09/24 16:06 Oxygen Delivery Method Room Air 05/09/24 16:06 Pain Level 5 05/09/24 16:05 Lab/Test Results Lab/Test Results: Laboratory Tests Range/Units 05/09/24 16:20 WBC (4.4-10.8) 10^3/uL 11.19 H RBC (4.36-5.78) 10^6/uL 4.72 Hgb (13.5-17.5) g/dL 14.9 Hct (40.0-50.0) % 43.8 MCV (80-95) fL 93 MCH (27.0-33.0) pg 31.6 MCHC (32.0-36.0) % 34.0 RDW (11.8-14.1) % 12.1 Plt Count (130-400) 10^3/uL 346 MPV (8.0-11.0) fL 8.0 Immature Gran % % 0.4 Neutrophils % % 66.3 Lymphocytes % % 20.9 Monocytes % % 10.8 Eosinophils % % 1.0 Basophils % % 0.6 Nucleated RBC % (0.0-0.3) % 0.0 Absolute Neutrophils (1.2-6.7) 10^3/uL 7.42 H Absolute Lymphocytes (1.2-3.4) 10^3/uL 2.34 Absolute Monocytes (0.1-0.8) 10^3/uL 1.21 H Absolute Eosinophils (0.0-0.7) 10^3/uL 0.11 Absolute Basophils (0.0-0.2) 10^3/uL 0.07 Sodium (136-145) mmol/L 136 Potassium (3.5-5.1) mmol/L 4.3 Chloride (98-107) mmol/L 102 Carbon Dioxide (21.0-32.0) mmol/L 23.3 Anion Gap (3-11) mmol/L 10.7 BUN (7-18) mg/dL 5 L Creatinine (0.70-1.30) mg/dL 0.8 Est GFR (CKD-EPI 2020) (mL/min/1.73m2) 106.48 Glucose (74-106) mg/dL 91 Calcium (8.5-10.1) mg/dL 8.9 Medical Decision Making Quality:SDOH Health Related Social Needs: No Data to Display PFSH All Active Problems (Updated 05/09/24 @ 17:11 by Rishabh Shelton MD) Abscess of arm, left (Acute) Axillary abscess (Acute) Chronic cough (Acute) Left inguinal hernia (Acute) Screening for malignant neoplasm of colon performed (Acute ~01/23/23) benign lymphoid tissue (lymph node) 10 years, [place] Hyperlipidemia (Acute) Smoker (Acute) 1 pack per day Erectile dysfunction (Acute) Insomnia (Acute 03/07/13) Hypertension (Chronic) Medical History (Updated 05/09/24 @ 17:11 by Rishabh Shelton MD) Hx of cardiac murmur per pt.f/u with PCP Surgical History (Updated 01/12/24 @ 13:56 by Lisbeth Malave) Hx of inguinal hernia repair (~01/2024) Left side History of colonoscopy (~01/23/23) H/O vasectomy Appendectomy (~1981) Family History Mother No problems noted. Father Asthma Heart disease Sister Asthma Son No problems noted. Daughter Asthma Maternal Grandfather , 76 Diabetes Paternal Grandfather , 37 No problems noted. Maternal Grandmother Heart disease Paternal Grandmother , 66 No problems noted. Social History Smoking/Tobacco Use Status: Current every day Tobacco Type: cigarettes Quit status: has quit before Second Hand Exposure: Yes Smoking risk assessment performed?: Yes Alcohol Intake: current Alcohol Intake frequency: a few times a week Alcohol type: beer Drug use: Never Substance use type: does not use Details: Smoked cigarette at 0540 this morning. 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 Pets and animals: Yes Pets and animals: dog(s) Sexually active: Yes Do you think of yourself as: straight/heterosexual Current gender identity: male What is your relationship status?: How often do you talk on the phone with friends or family?: three or more times per week How often do you get together with friends or relatives?: three or more times per week How often do you attend denominational or temple services?: 1-3 times per year Do you belong to any clubs or organized social groups?: no Panel score (0-1 are the most socially isolated patients): 2 What type of physical activity do you participate in: none Seatbelt use: always Helmet use: Yes Drive intox or ride w/intox racecar driver: No Working smoke detector in home: Yes Firearms in home: Yes Do you feel safe at home: Yes Do you feel safe in your relationship?: Yes
[2024-05-09 16:45] VITALS: BP 140/83; PULSE 80
[2024-05-09 17:00] VITALS: BP 129/80
[2024-05-09 17:40] LABS: Lab Add On Test DONE
[2024-05-09] MEDS: Normal Saline - Diluent 50 ML VIAL IJ (17:50)
[2024-05-09 17:51] LABS: C-Reactive Protein 3.85 mg/dL (<or=0.5)
[2024-05-09] MEDS: Omnipaque 350 MG/ML 100 ML BTL IJ (17:51)
--- NOTE | 2024-05-09 18:06 | W.EDPROG ---
Date of service: 05/09/24 Time of Service: 18:07 Medical Decision Making Care assumed from outgoing provider. Patient is pending a CT scan of his upper extremity to evaluate the infection there. CT imaging discussed with the radiologist. There is a possible infectious etiology but there is also concern for a sarcoma. I discussed these findings with Dr. Tran. The radiologist was also concerned that there was some abnormality within the lung, possible infiltrate or other infectious causes. The patient has no respiratory symptoms, shortness of breath or hypoxia. A chest x-ray was obtained and there is some nonspecific abnormality noted. He has received a dose of IV antibiotics and is being discharged on Augmentin given that he does not have any other respiratory symptoms, do not feel that this needs treatment additionally. The plan for the patient is that he will be discharged home and follow-up tomorrow for surgical management of his arm. He understands to be n.p.o. after midnight. Quality:SDOH Health Related Social Needs: No Data to Display Discharge Plan Disposition Patient Disposition: Home Condition: Stable Discharge Details Clinical Impression: Abscess of arm, left Primary Care Provider: Edmond Villasenor ED Provider: Dell Alonso Home Meds and New Rx's Prescriptions: New amoxicillin-pot clavulanate 875-125 mg tablet 1 tab PO BID 7 Days Qty: 14 0RF Continued ibuprofen 800 mg tablet 800 mg PO DIRECTED Qty: 90 3RF Rx Instructions: TAKE AT ONSET OF MIGRAINE magnesium 200 mg tablet 200 mg PO HS cholecalciferol (vitamin D3) 125 mcg (5,000 unit) capsule 125 mcg PO DAILY vitamin B complex-folic acid [Super B Maxi Complex] 0.4 mg tablet 1 tab PO DAILY aspirin 81 mg tablet,delayed release (DR/EC) 81 mg PO DAILY atorvastatin 20 mg tablet 20 mg PO QHS Qty: 90 3RF lisinopril 20 mg tablet 20 mg PO DAILY Qty: 90 3RF tadalafil 10 mg tablet 10 mg PO DAILY PRN (Reason: sexual activity) Qty: 30 3RF Rx Instructions: administer approximately 30min before sexual activity; do not use more than 1 dose per 24hrs Discharge Instructions Additional Instructions: NOTHING TO EAT OR DRINK AFTER MIDNIGHT DAY SURGERY TEAM WILL CONTACT YOU AROUND 7AM TO LET YOU KNOW WHEN TO ARRIVE FOR YOUR SURGERY
--- NOTE | 2024-05-09 19:00 | DI.RAD_ITS ---
Exam(s) XR CHEST 2V PA LATERAL EXAM: XR CHEST 2V PA LATERAL CLINICAL HISTORY: ABNORMAL CXR TECHNIQUE: 2D digital imaging was performed of the chest. Two images were obtained. PA and lateral views were obtained. COMPARISON: CR XR CHEST 2V PA LATERAL from 12/08/2023 FINDINGS: MEDIASTINUM: Normal. HEART: Normal. PULMONARY VASCULATURE: Normal. LUNGS: There are bilateral infiltrates seen in the left perihilar region predominantly but also invol ving the right upper lobe. PLEURAL SPACE: No pleural effusion or pneumothorax. BONE:Within normal limits for the patient's age. OTHER FINDINGS:Normal. IMPRESSION: Findings suspicious for multifocal pneumonia. DATA REPOSITORY: RADIATION DOSE DELIVERED:
[2024-05-09 19:15] VITALS: BP 146/96; PULSE 76; RESP 16; O2SAT 97
[2024-05-09 20:13] VITALS: BP 140/90; PULSE 78; RESP 16; O2SAT 98
--- NOTE | 2024-05-09 20:38 | DI.VRAD_ITS ---
Addendum created by Rishabh Godinez MD on 05/09/2024 8:44:53 PM EST: COMMENT: THIS REPORT CONTAINS FINDINGS THAT MAY BE CRITICAL TO PATIENT CARE. The exam findings were verbally communicated by me to YOSELIN FRAZIER via telephone conference at 8:40 PM EST on 05/09/2024. The findings were acknowledged and understood. Initial report created on 05/09/2024 8:38:18 PM EST: PROCEDURE INFORMATION: Exam: XR Chest Exam date and time: 05/09/2024 7:28 PM Age: 53 years old Clinical indication: Abnormal findings; Other: Abn cxr TECHNIQUE: Imaging protocol: Radiologic exam of the chest. Views: 2 views. COMPARISON: CR XR CHEST 2V PA LATERAL 12/08/2023 2:07 PM FINDINGS: Lungs: There is increased mild patchy density in the left perihilar region as well as at the lateral apical right upper lobe, which may represent mild pneumonia in these regions. There is no pulmonary vascular congestion. Pleural spaces: There are no pleural effusions present. There is no evidence of pneumothorax. Heart/Mediastinum: The cardiomediastinal silhouette is within normal limits. Bones/joints: Unremarkable. IMPRESSION: Findings suggest new mild airspace opacities, as described above, which may represent multifocal mild bronchopneumonia. Recommend clinical correlation as well as follow-up chest x-ray in 8 weeks to document resolution. Dictated and Authenticated by: Rishabh Godinez MD. Orderin Gavin Cheung MD
== END 2024-05-09 20:13 | disposition home or self-care (01) ==
PROVIDERS: Emergency Medicine; Surgery; Emergency Provider Emergency Medicine; PCP Nurse Practitioner Family
DX: L02.414 Cutaneous abscess of left upper limb (principal); R91.8 Other nonspecific abnormal finding of lung field
CPT/HCPCS: 00123; 80048; 96365; 96366; 99285; 71046; 73201; 85025; 86140; 99284; J2543; J3490

== ENCOUNTER 2024-05-10 09:54 | Day surgery (SDC) | payer BC, SELFPAY ==
[2024-05-10] VITALS (19 sets, daily range): BP systolic 134–153; BP diastolic 80–92; PULSE 71–86; RESP 12–27; TEMP 36.2–36.7; O2SAT 96–99; BMI 25.2
[2024-05-10] MEDS: Gabapentin 300 MG CAP 600 MG PO (10:42)
[2024-05-10] MEDS: Acetaminophen 500 MG TAB 1000 MG PO (10:42)
[2024-05-10] MEDS: Normal Saline 1,000 ML 80 ML IV (10:52)
--- NOTE | 2024-05-10 11:18 | W.ANESPRE ---
General Info Date of Service Date Performed: 05/10/24 Height: 5 ft 6 in Weight: 70.9 kg Body Mass Index (BMI): 25.2 Surgical Procedure: Operation Date: 05/10/24 11:10 Proposed Procedure Side Surgeon p I&D Arm Abscess Left Susan Tran, Meds Allergies and Home Medications Allergies Allergy/AdvReac Type Severity Reaction Status Date / Time No Known Allergies Allergy Verified 05/10/24 10:39 Home Medication ?Medication ?Instructions ?Recorded ibuprofen 800 mg tablet 800 mg PO DIRECTED #90 tabs 03/16/23 aspirin 81 mg tablet,delayed 81 mg PO DAILY 11/23/23 release cholecalciferol (vitamin D3) 125 125 mcg PO DAILY 11/23/23 mcg (5,000 unit) capsule magnesium 200 mg tablet 200 mg PO HS 11/23/23 vitamin B complex-folic acid 0.4 1 tab PO DAILY 11/23/23 mg tablet (Super B Maxi Complex) atorvastatin 20 mg tablet 20 mg PO QHS #90 tabs 03/12/24 lisinopril 20 mg tablet 20 mg PO DAILY #90 tabs 03/12/24 tadalafil 10 mg tablet 10 mg PO DAILY PRN sexual activity 04/07/24 #30 tabs amoxicillin 875 mg-potassium 1 tab PO BID 7 days #14 tabs 05/09/24 clavulanate 125 mg tablet Current Visit Medications: Current Medications Generic Name Dose Route Start Last Admin Trade Name Freq PRN Reason Stop Dose Admin Acetaminophen 1,000 mg 05/10/24 06:00 05/10/24 10:42 Acetaminophen 500 Mg Tab PO 05/10/24 23:59 1,000 mg PREOP ÁLVARO Administration Gabapentin 600 mg 05/10/24 06:00 05/10/24 10:42 Gabapentin 300 Mg Cap PO 05/10/24 23:59 600 mg PREOP ÁLVARO Administration Piperacillin Sod/Tazobactam 50 mls @ 100 mls/hr 05/10/24 08:45 Sod 3.375 gm/ Sodium Chloride IVPB 05/10/24 23:59 PREOP ÁLVARO Sodium Chloride 1,000 mls @ 80 mls/hr 05/10/24 10:30 05/10/24 10:52 Saline 1000ml Bag IV 06/09/24 10:29 80 mls/hr INFUSION ÁLVARO Administration IV Miscellaneous Supplies 1 each 05/10/24 06:00 Iv Access IV 05/10/24 23:59 DIRECTED ÁLVARO Sodium Chloride 0 ml 05/10/24 06:00 Normal Saline Flush 10 Ml Syr IV 05/10/24 23:59 PRN PRN Sodium Chloride 0 ml 05/10/24 06:00 Normal Saline 10 Ml Vial IJ 05/10/24 23:59 DIRECTED PRN Sterile Water 0 ml 05/10/24 06:00 Water,Injection,Sterile 10 Ml Vial IJ 05/10/24 23:59 DIRECTED PRN PFSH Active Problems Active Problems: Problem Status Onset Code Abscess of arm, left Acute L02.414 Axillary abscess Acute L02.419 Chronic cough Acute R05.3 Left inguinal hernia Acute K40.90 Screening for malignant neoplasm of colon performed Acute ~01/23/23 Z12.11 Hyperlipidemia Acute E78.5 Smoker Acute F17.200 Erectile dysfunction Acute N52.9 Insomnia Acute 03/07/13 G47.00 Hypertension Chronic I10 Medical History Medical History Hx of cardiac murmur per pt.f/u with PCP Surgical History Surgical History Hx of inguinal hernia repair (~01/2024) Left side History of colonoscopy (~01/23/23) H/O vasectomy Appendectomy (~1981) Tobacco Smoking/Tobacco Use Status: Current every day Tobacco Type: cigarettes Passive smoking exposure: Yes Second hand exposure: Yes Alcohol Alcohol Intake: current Alcohol intake frequency: a few times a week Alcohol type: beer Substance Use Substance use: Never Substance use type: does not use Details: Smoked cigarette at 0540 this morning. Vital Signs and Lab Results Vital Signs Most Recent Vital Signs in EMR: Most Recent Vital Signs Temp Pulse Resp BP Pulse Ox 36.2 C L 86 16 150/86 H 97 05/10/24 10:15 05/10/24 10:15 05/10/24 10:15 05/10/24 10:15 05/10/24 10:15 Lab Results Blood Type / Crossmatch: No Data to Display Complete Blood Count: White Blood Count 11.19 10^3/uL (4.4-10.8) H 05/09/24 16:20 Red Blood Count 4.72 10^6/uL (4.36-5.78) 05/09/24 16:20 Hemoglobin 14.9 g/dL (13.5-17.5) 05/09/24 16:20 Hematocrit 43.8 % (40.0-50.0) 05/09/24 16:20 Platelet Count 346 10^3/uL (130-400) 05/09/24 16:20 Complete Metabolic Panel: Sodium 136 mmol/L (136-145) 05/09/24 16:20 Potassium 4.3 mmol/L (3.5-5.1) 05/09/24 16:20 Chloride 102 mmol/L (98-107) 05/09/24 16:20 Carbon Dioxide 23.3 mmol/L (21.0-32.0) 05/09/24 16:20 BUN 5 mg/dL (7-18) L 05/09/24 16:20 Creatinine 0.8 mg/dL (0.70-1.30) 05/09/24 16:20 Est GFR (CKD-EPI 2020) 106.48 (mL/min/1.73m2) 05/09/24 16:20 Calcium 8.9 mg/dL (8.5-10.1) 05/09/24 16:20 Glucose 91 mg/dL (74-106) 05/09/24 16:20 C-Reactive Protein 3.85 mg/dL (<or=0.5) H 05/09/24 16:20 Liver Function Panel: No Data to Display Coagulation Panel: No Data to Display Cardiac Panel: No Data to Display Arterial Blood Gas: No Data to Display Venous Blood Gas: No Data to Display Pancreas Panel: No Data to Display Thyroid Panel: No Data to Display Infectious Disease: No Data to Display Blood Cultures: No Data to Display Toxicology Panel: No Data to Display Anesthesia Assessment and Plan Anesthesia History Personal History: No History of Anesthesia Complications Family History: No Family History of Anesthesia Complications Exercise Tolerance Exercise Tolerance: Metabolic Equivalents>4 Pertinent Negatives Pertinent Negatives: No Symptoms of GERD, No Major Cardiovascular Symptoms or Complaints and No Major Pulmonary Symptoms or Complaints Cardiac & Pulmonary Exam Cardiac Exam: Heart Murmur Present Pulmonary Exam: Clear Bilateral Breath Sounds (Diminished) Implantable Cardiac Device Does patient have a Pacemaker or an ICD?: No Airway Exam Known Difficult Airway: No Mallampati Class: 2 Mouth Opening: Normal (> 3cm) Thyromental Distance: Greater than 3 cm Neck Range of Motion: Full ROM Neck Circumference: Normal Teeth Condition: Normal Dentition ASA Classification ASA Score: ASA 2 Emergency Case?: No NPO Status NPO Status: NPO Clears >2 hours, Solids >8 hours Anesthesia Plan Resuscitation Status: Full Code Anesthesia Technique: General Anesthesia Airway Planned: LMA Monitors Used: Standard Monitors and SedLine
[2024-05-10] MEDS: PIPERACILLIN/TAZO 3.375 GM in Normal Saline 50 ML IVPB (12:05)
[2024-05-10] MEDS: Bupivacaine 0.5% Pres-Free W/EPI 30 ML VIAL (12:29)
--- NOTE | 2024-05-10 12:48 | SKI_PTH ---
PATIENT: Brian Leyva JR LOC: [facility] U#:[id number] AGE/SX: 53/M ROOM: RE05/10/[address]: Susan Tran : 1970 BED: DIS: 05/10/2024 SPEC #: [id number] RECD: 05/10/24 18:21 STATUS: ABIGAIL REQ #: [id number] PERCY: 05/10/24 12:[address]: Susan Tran DEPT: Surgical Specimen RECD BY: Shaylee More ENTERED: 05/10/24 18:24 SP TYPE: MATT MARTINEZ DR: Edmond Villasenor, [employer] Tissues: 1 - SKIN BIOPSY(SHAVE/PUNCH) 2 - SKIN BIOPSY(SHAVE/PUNCH) 3 - SKIN BIOPSY(SHAVE/PUNCH) Procedures: SKIN LEVEL 4 SPECIAL STAIN 1 Comments: [id number]
--- NOTE | 2024-05-10 13:44 | W.PM.DSUDISC ---
Date of service: 05/10/24 Discharge Plan Disposition Patient Disposition: Home Condition: Good Discharge Details Reason For Visit: I&D left upper arm abscess Attending Provider: Susan Tran Primary Care Provider: Edmond Villasenor Home Meds and New Rx's Prescriptions: New oxycodone 5 mg tablet 5 mg PO Q4H PRN (Reason: pain > 7) Qty: 14 0RF Continued ibuprofen 800 mg tablet 800 mg PO DIRECTED Qty: 90 3RF Rx Instructions: TAKE AT ONSET OF MIGRAINE magnesium 200 mg tablet 200 mg PO HS cholecalciferol (vitamin D3) 125 mcg (5,000 unit) capsule 125 mcg PO DAILY vitamin B complex-folic acid [Super B Maxi Complex] 0.4 mg tablet 1 tab PO DAILY aspirin 81 mg tablet,delayed release (DR/EC) 81 mg PO DAILY atorvastatin 20 mg tablet 20 mg PO QHS Qty: 90 3RF lisinopril 20 mg tablet 20 mg PO DAILY Qty: 90 3RF tadalafil 10 mg tablet 10 mg PO DAILY PRN (Reason: sexual activity) Qty: 30 3RF Rx Instructions: administer approximately 30min before sexual activity; do not use more than 1 dose per 24hrs amoxicillin-pot clavulanate 875-125 mg tablet 1 tab PO BID 7 Days Qty: 14 0RF Patient Comments: hasnt started yet Discharge Instructions Additional Instructions: Keep an ice bag on the incision. 20 minutes on and 20 minutes off. Ice keeps the swelling down and swelling causes pain. Make sure you wrap the ice pack in a towel and don't apply directly to the skin. -No driving for 24 hrs or of you are taking narcotic pain medications. -Follow-up with Dr. Monge on Tuesday 05/16 at 10:15am -Regular diet -no straining to move bowels -pain meds are very constipating: if you do not move your bowels daily take a dose of OTC Miralax -It is ok to shower. No bathe, soaking, swimming or hot tubs -Keep wound clean and dry. Wash incision with soap and water daily. Pat dry, don't rub. . You may find that your appetite is smaller. Eat 3-6 small meals throughout the day. It is important to drink lots of water after surgery, 6-10 glasses a day. -We do want you up walking, at least 5-6 times per day. This is very important to prevent pneumonia and blood clots. You can climb stairs, take them slowly. -You may find that you are very tired after surgery- this is normal. -please do not smoke for a minimum of 72 hours after surgery. Wound Care Instruction Pain Control Use ice!? Ice keeps the swelling down and swelling is what causes pain.? Never apply ice directly to the skin.? Wrap it in a towel or cloth.? Apply ice 20 minutes on and 20 minutes off for pain control.? Use as needed. Take Tylenol 1000 mg by mouth with food every 8 hours as needed for pain. Or ibuprofen 600 mg by mouth with food every 6 hours as needed for pain.? Always wash your hands before touching your incision. ? Keep the incision clean, dry, and out of water, keep the incision out of water. You may shower, but do not soak. ? Do not to pick at the scabs. Scabs help protect the wound. ? You can take a shower in 24 hours and wash the incision with soap and water. Pat dry/don?t scrub. It?s OK to wash around the incision. But don?t spray water directly on it. ? Pat stitches dry if they get wet. Don't rub. ? Check the incision site daily for pain, redness, drainage, swelling, or separation of the incision edges. ? Make sure any clothing that touches the incision is loose-fitting. This will prevent rubbing. When to seek medical care Call your healthcare provider right away if you have any of these: ? More pain, redness, swelling, bleeding, or foul-smelling discharge around the incision area ? Fever of 101?F (38.3?C) or higher, or as directed by your child's healthcare provider ? Shaking chills ? Vomiting or nausea that doesn?t go away ? Numbness, coldness, or tingling around the incision area, or changes in skin color ?[facility]: [phone] Stand Alone Forms: Anesthesia Discharge Evgeny Medrano (DSU) Activity:: See above Remove Dressings/Wound Care:: 24 hours Shower/Bathe:: 24 hours Diet:: As Tolerated Discharge Orders Discharge Orders: Discharge Order (Routine); Ordered 05/10/24 Ordered By: Susan Tran Discharge Data Discharge Date/Time-TO BE ENTERED AT DEPARTURE: 05/10/24 15:50 DS: Diagnosis Discharge Diagnosis (1) Cellulitis of left upper arm: Status: Acute (2) Smoker: Status: Acute (3) Abscess of arm, left: (4) Chronic cough: Status: Acute Asessment and Plan: The patient is doing well post-op from their left upper arm I&D surgery.? They are having no nausea or vomiting. They are tolerating liquids and a snack. The pt is not having any chest pain or SOB.? Their pain is adequately controlled. They have been able to urinate.? ?HEENT:? no eye pain/drainage/redness/swelling. Mild sore throat ?Cardio- NSR, no chest pain, BP stable- see VS record ?Pulm: no sob or productive cough. No hemoptysis ?Incision- dressing is c/d/i w/ no excessive bleeding or drainage ?I discussed with the patient the findings at the time of surgery and the patient?s progress. ?We reviewed expectations at home; what the patient could expect for recovery time, and in the post-operative period.? We discussed the importance of walking to avoid blood clots and pneumonia.? We discussed and reviewed the patient's post-operative wound care and dressing needs.?? We reviewed their step-johnston pain management plan, Rx called to the pharmacy of their choice.? We reviewed activity and limitations-see discharge instructions. We reviewed warning signs, and when to seek medical attention- see d/c instructions.?? Patient was given a postoperative follow-up appointment. Patient verbalized understanding of their postoperative instructions, how do to take care of themselves and their incision, and the pain management plan. Please see discharge instructions.?
--- NOTE | 2024-05-10 13:54 | W.PM.DSUDISC ---
Date of service: 05/10/24 Discharge Plan Disposition Patient Disposition: Home Condition: Good Discharge Details Reason For Visit: I&D left upper arm abscess Attending Provider: Susan Tran Primary Care Provider: Edmond Villasenor Home Meds and New Rx's Prescriptions: New oxycodone 5 mg tablet 5 mg PO Q4H PRN (Reason: pain > 7) Qty: 14 0RF Continued ibuprofen 800 mg tablet 800 mg PO DIRECTED Qty: 90 3RF Rx Instructions: TAKE AT ONSET OF MIGRAINE magnesium 200 mg tablet 200 mg PO HS cholecalciferol (vitamin D3) 125 mcg (5,000 unit) capsule 125 mcg PO DAILY vitamin B complex-folic acid [Super B Maxi Complex] 0.4 mg tablet 1 tab PO DAILY aspirin 81 mg tablet,delayed release (DR/EC) 81 mg PO DAILY atorvastatin 20 mg tablet 20 mg PO QHS Qty: 90 3RF lisinopril 20 mg tablet 20 mg PO DAILY Qty: 90 3RF tadalafil 10 mg tablet 10 mg PO DAILY PRN (Reason: sexual activity) Qty: 30 3RF Rx Instructions: administer approximately 30min before sexual activity; do not use more than 1 dose per 24hrs amoxicillin-pot clavulanate 875-125 mg tablet 1 tab PO BID 7 Days Qty: 14 0RF Patient Comments: hasnt started yet Discharge Instructions Additional Instructions: Keep an ice bag on the incision. 20 minutes on and 20 minutes off. Ice keeps the swelling down and swelling causes pain. Make sure you wrap the ice pack in a towel and don't apply directly to the skin. -No driving for 24 hrs or of you are taking narcotic pain medications. -Follow-up with Dr. Monge on Tuesday 05/16 at 10:15am -Regular diet -no straining to move bowels -pain meds are very constipating: if you do not move your bowels daily take a dose of OTC Miralax -It is ok to shower. No bathe, soaking, swimming or hot tubs -Keep wound clean and dry. Wash incision with soap and water daily. Pat dry, don't rub. . You may find that your appetite is smaller. Eat 3-6 small meals throughout the day. It is important to drink lots of water after surgery, 6-10 glasses a day. -We do want you up walking, at least 5-6 times per day. This is very important to prevent pneumonia and blood clots. You can climb stairs, take them slowly. -You may find that you are very tired after surgery- this is normal. -please do not smoke for a minimum of 72 hours after surgery. Wound Care Instruction Pain Control Use ice!? Ice keeps the swelling down and swelling is what causes pain.? Never apply ice directly to the skin.? Wrap it in a towel or cloth.? Apply ice 20 minutes on and 20 minutes off for pain control.? Use as needed. Take Tylenol 1000 mg by mouth with food every 8 hours as needed for pain. Or ibuprofen 600 mg by mouth with food every 6 hours as needed for pain.? Always wash your hands before touching your incision. ? Keep the incision clean, dry, and out of water, keep the incision out of water. You may shower, but do not soak. ? Do not to pick at the scabs. Scabs help protect the wound. ? You can take a shower in 24 hours and wash the incision with soap and water. Pat dry/don?t scrub. It?s OK to wash around the incision. But don?t spray water directly on it. ? Pat stitches dry if they get wet. Don't rub. ? Check the incision site daily for pain, redness, drainage, swelling, or separation of the incision edges. ? Make sure any clothing that touches the incision is loose-fitting. This will prevent rubbing. When to seek medical care Call your healthcare provider right away if you have any of these: ? More pain, redness, swelling, bleeding, or foul-smelling discharge around the incision area ? Fever of 101?F (38.3?C) or higher, or as directed by your child's healthcare provider ? Shaking chills ? Vomiting or nausea that doesn?t go away ? Numbness, coldness, or tingling around the incision area, or changes in skin color ?[facility]: [phone] Activity:: See above Remove Dressings/Wound Care:: 24 hours Shower/Bathe:: 24 hours Diet:: As Tolerated DS: Diagnosis Discharge Diagnosis (1) Cellulitis of left upper arm: Status: Acute (2) Smoker: Status: Acute (3) Abscess of arm, left: (4) Chronic cough: Status: Acute Asessment and Plan: The patient is doing well post-op from their I&D left upper arm surgery.? They are having no nausea or vomiting. They are tolerating liquids and a snack. The pt is not having any chest pain or SOB.? Their pain is adequately controlled. They have been able to urinate.? ?HEENT:? no eye pain/drainage/redness/swelling. Mild sore throat ?Cardio- NSR, no chest pain, BP stable- see VS record ?Pulm: no sob or productive cough. No hemoptysis ?Incision- dressing is c/d/i w/ no excessive bleeding or drainage ?I discussed with the patient the findings at the time of surgery and the patient?s progress. ?We reviewed expectations at home; what the patient could expect for recovery time, and in the post-operative period.? We discussed the importance of walking to avoid blood clots and pneumonia.? We discussed and reviewed the patient's post-operative wound care and dressing needs.?? We reviewed their step-johnston pain management plan, Rx called to the pharmacy of their choice.? We reviewed activity and limitations-see discharge instructions. We reviewed warning signs, and when to seek medical attention- see d/c instructions.?? Patient was given a postoperative follow-up appointment. Patient verbalized understanding of their postoperative instructions, how do to take care of themselves and their incision, and the pain management plan. Please see discharge instructions.?
--- NOTE | 2024-05-10 13:55 | ROE_ITS ---
Operative Note Operative Note PRE-OP DIAGNOSIS: left upper arm abscess POST-OP DIAGNOSIS: same PROCEDURE: I&D SURGEON: Susan Tran AUTO REPAIR TECHNICIAN: Sharda Richards ANESTHESIA TYPE: Local By Surgeon and General LMA/ETT Refer to Anesthesia Record ESTIMATED BLOOD LOSS: 5 PATHOLOGY: other COMPLICATIONS: None Patient was transported to: PACU Procedure Description: Patient is a 53-year-old male who is here today regarding a possible arm abscess versus mass that is here today for I&D and biopsy. Informed consent was obtained explaining risks and benefits of procedure including not limited to bleeding, infection, pneumonia, blood clots, chronic pain or numbness. Patient understands that we will leave a scar. He will need to do dressing changes for couple days. Will follow-up in the office on Thursday. The arm is marked prior needed for coming into preop. The patient is brought to the operative suite and placed in the supine position. Anesthesia is administered per the department of anesthesia. Patient is prepped and draped in the usual sterile fashion using a ChloraPrep scrub solution. He received preop antibiotics. Timeout is performed by institutional protocols. The lesion on the medial side is attended to first. 1/4 inch elliptical incision is created. There is some unhealthy granular tissue underneath the wound. There is no significant purulent material. A curette is used to remove all of this tissue. The skin is sent for biopsy. This does extend down through the fat. It is above the fascia. The lateral aspect is attended to next. The skin is a firm hard erythematous. 1/4 inch incision is made down to the fascia and muscle. Bleeding is encountered, this is cauterized but ultimately a stitch had to be placed to control the bleeding. This area is explored. Cultures are taken. No purulent material is encountered. Ultrasound is used to visualize the underlying muscle. There is a irregular pocket within the muscle but is approximately 3 x 2 inches. A needle is placed into the cavity and all ultrasound guidance and aspirated. No fluid was obtained. A Aaron-Cut core needle biopsy was passed into this area in tissue was achieved for biopsy. 3 passes are obtained. We are nowhere near the veins or nerves. Pictures were taken. No significant bleeding is encountered. The wounds are irrigated with a liter of saline and packed with plain gauze sterile dressing and's Kennedy wrap are applied patient Toller procedure well without complication and transferred to cover room in stable condition. Patient will follow-up in clinic on Thursday for wound check. See postoperative details Date of Procedure: 05/10/24
--- NOTE | 2024-05-10 14:01 | W.ANESPOSTOP ---
Postoperative Evaluation Date, Time and Location Date Performed: 05/10/24 Time Performed: 14:02 Patient Location: Day Surgery Unit Vital Signs Most Recent Imported Vital Signs: Most Recent Vital Signs Temp Pulse Resp BP Pulse Ox 36.7 C 73 16 143/85 H 96 05/10/24 13:52 05/10/24 13:52 05/10/24 13:52 05/10/24 13:52 05/10/24 13:52 Pain Score Most Recent Pain Score: Most Recent Pain Score Pain Level 0 05/10/24 13:52 Assessment Mental Status: Awake (Alert & Oriented to Patient Baseline) Airway and Respiratory Function: Patent airway with normal (patient baseline) respiratory exam Cardiovascular Function: Hemodynamically Stable Hydration Status: Adequately Hydrated Nausea & Vomiting: No Nausea or Vomiting Pain: Pain is tolerable per patient Peripheral Nerve Block: Patient did not receive a nerve block
== END 2024-05-10 15:50 | disposition home or self-care (01) ==
PROVIDERS: PCP Nurse Practitioner Family; Visit Provider Surgery
PROC: (CPT 23930; principal; 2024-05-10 11:00)
DX: M60.001 Infective myositis, unspecified left arm (principal); I10 Essential (primary) hypertension; G47.00 Insomnia, unspecified; F17.210 Nicotine dependence, cigarettes, uncomplicated; E78.5 Hyperlipidemia, unspecified; L03.114 Cellulitis of left upper limb; F17.200 Nicotine dependence, unspecified, uncomplicated; L02.414 Cutaneous abscess of left upper limb; R05.3 Chronic cough
CPT/HCPCS: 23930; 87070; 87075; 87205; 88305; 88312; J1100; J2003; J2405; J2543; J2704; J3010

== ENCOUNTER 2024-08-07 19:18 | Emergency (ER) | payer BC, SELFPAY ==
[2024-08-07] VITALS (21 sets, daily range): BP systolic 126–165; BP diastolic 68–86; PULSE 61–93; RESP 16–26; TEMP 37; O2SAT 94–98
--- NOTE | 2024-08-07 19:45 | RT.EKG_ITS ---
APPROVED REPORT Exam: Resting ECG Reason for Exam: weakness Patient Location: E HR:70 bpm ECG Measurements Heart Rate 70 AXIS WY 185 P 45 QRSd 105 QRS -26 QT 444 T 24 QTc 480 Conclusion Sinus rhythm 70 normal axis no stemi
--- NOTE | 2024-08-07 19:57 | DI.CT_ITS ---
Exam(s) CT BRAIN NECK CTA EXAM: CT BRAIN NECK CTA CLINICAL HISTORY: dizziness, STRATTON, ams. TECHNIQUE: Imaging Protocol: Axial CT angiography was performed with multi-slice acquisition and mu lti-planar and MIP reconstructions. CONTRAST MATERIAL: Intravenous: Omnipaque 350 Contrast volume:75 mL COMPARISON: CR,XR XR CHEST 2V PA LATERAL from 05/09/2024 FINDINGS: CT Head W/O and W contrast: Hemorrhage: None. Cerebral parenchyma: There are multiple bilateral low attenuation areas with rim enhancement, greates t in the left frontal lobe and right parietal lobes. There is significant surrounding edema. There is some compression of the right lateral ventricle. There is midline shift toward the left at the l evel of the lateral ventricles of 3 millimeters. Calvarium: Normal. Visualized Paranasal sinuses/Mastoids: mild ethmoid sinus mucosal thickening. Soft Tissues: Unremarkable. CTA Brain W: Internal Carotid Arteries: Petrous: Normal. Cavernous: Normal. Cerebral: Normal. Middle Cerebral Arteries: Right: No aneurysm, occlusion or significant stenosis. Left: No aneurysm, occlusion or significant stenosis. Anterior Cerebral Arteries: Right: No aneurysm, occlusion or significant stenosis. Left: No aneurysm, occlusion or significant stenosis. Posterior cerebral Arteries: Right: No aneurysm, occlusion or significant stenosis. Left: No aneurysm, occlusion or significant stenosis. Vertebral Arteries: Right: No aneurysm, occlusion or significant stenosis. Left: No aneurysm, occlusion or significant stenosis. Basilar Artery: No aneurysm, occlusion or significant stenosis. CTA Neck W: Common Carotid: None Right: Minimal calcific plaque at the bulb. No dissection, occlusion or significant stenosis. Left: Mild mixed plaque at the bulb. No dissection, occlusion or significant stenosis. External Carotid: Right: No dissection, occlusion or significant stenosis. Left: No dissection, occlusion or significant stenosis. Internal Carotid: Right: No dissection, occlusion or significant stenosis. Left: No dissection, occlusion or significant stenosis. Vertebral Artery: Right: No dissection, occlusion or significant stenosis. Left: No dissection, occlusion or significant stenosis. Bones: No acute abnormality. Soft Tissues: Normal. IMPRESSION: 1. CTA brain: Normal CTA examination of the [place]. 2. Head CT: Multiple rim enhancing lesions greatest in left frontal right parietal regions with signi ficant surrounding edema causing midline shift toward the left of 3 millimeters. There is some compr ession of the right lateral ventricle. Findings are may represent abscesses versus metastatic diseas e. 3. CTA neck: Mild plaque at the common carotid bulbs. No significant stenosis. RADIATION DOSE DELIVERED: 2,232.68mGy.cm Total DLP DATA REPOSITORY: All CT scans at this facility are submitted to the National Radiology Data Registry (NRDR) Dose Index Registry (DIR) with the [employer] ([employer]). RADIATION OPTIMIZATION: All CT scans at this facility use at least one of these dose optimization te chniques: automated exposure control; mA and/or kV adjustment per patient size (includes targeted exa ms where dose is matched to clinical indication); or iterative reconstruction.
[2024-08-07 20:06] LABS: Abs Immature Grans 0.06 10^3/uL (0.0-0.06); Absolute Eosinophil Count 0.41 10^3/uL (0.0-0.7); Absolute Lymphocyte Count 2.19 10^3/uL (1.2-3.4); Absolute Monocyte Count 1.15 10^3/uL (0.1-0.8); Basophils % 0.8 %; Eosinophils % 3.2 %; HCT 48.2 % (40.0-50.0); HGB 16.7 g/dL (13.5-17.5); Immature Grans % 0.5 %; Lymphocytes % 17.3 %; MCH 31.6 pg (27.0-33.0); MCHC 34.6 % (32.0-36.0); MCV 91 fL (80-95); MPV 8.4 fL (8.0-11.0); Monocytes % 9.1 %; Neutrophils % 69.1 %; Platelet Count 330 10^3/uL (130-400); RBC 5.29 10^6/uL (4.36-5.78); RDW 12.3 % (11.8-14.1); RDW-SD 41.4 fL; WBC 12.67 10^3/uL (4.4-10.8)
[2024-08-07 20:07] LABS: Absolute Neutrophil Count 8.75 10^3/uL (1.2-6.7)
[2024-08-07] MEDS: Normal Saline 1,000 ML 1000 ML IV (20:18)
[2024-08-07] MEDS: Prochlorperazine 10 MG/2 ML VIAL 5 MG IVP (20:18)
[2024-08-07] MEDS: ACETAMINOPHEN 500 MG/50 ML BAG 200 MG IVPB (20:19)
[2024-08-07 20:21] LABS: ALT 41 U/L (16-63); AST 27 U/L (15-37); Albumin 3.6 g/dL (3.4-5.0); Alkaline Phosphatase 182 U/L (46-116); Anion Gap 11.5 mmol/L (3-11); BUN 4 mg/dL (7-18); Bilirubin, Total 0.4 mg/dL (0.2-1.0); CO2 25.5 mmol/L (21.0-32.0); CREATININE 0.8 mg/dL (0.70-1.30); Calcium 9.4 mg/dL (8.5-10.1); Chloride 94 mmol/L (98-107); ETHANOL BLOOD 23.9 mg/dL (<10); Estimated GFR 105.82 (mL/min/1.73m2); Glucose 99 mg/dL (74-106); Magnesium 1.9 mg/dL (1.8-2.4); Potassium 3.6 mmol/L (3.5-5.1); Sodium 131 mmol/L (136-145); Total Protein 7.8 g/dL (6.4-8.2)
[2024-08-07] MEDS: Normal Saline - Diluent 50 ML VIAL IJ ×2 (21:01→22:29)
[2024-08-07] MEDS: Omnipaque 350 MG/ML 100 ML BTL IJ ×2 (21:02→22:30)
[2024-08-07 21:28] LABS: Prothrombin Time 9.7 sec (9.1-11.1)
[2024-08-07 21:34] LABS: Bilirubin Negative (Negative); Blood Negative (Negative); Clarity Clear (Clear); Glucose Negative (Negative); Ketones Negative (Negative); Leukocyte Esterase Negative (Negative); Nitrite Negative (Negative); Urobilinogen 0.2 mg/dL (Up to 0.2)
[2024-08-07 21:51] LABS: *AMPHETAMINES SCREEN URINE Negative (Negative); *BARBITURATES SCREEN URINE Negative (Negative); *BENZODIAZEPINES SCREEN URINE Negative (Negative); Cannabinoids THC Negative (Negative); Cocaine Screen,Urine Negative (Negative); METHADONE URINE SCREEN Negative (Negative); OPIATES URINE SCREEN Negative (Negative); Tricyclic Antidepressants Negative (Negative)
--- NOTE | 2024-08-07 22:15 | DI.CT_ITS ---
Exam(s) CT CHEST/ABD/PEL W EXAM: CT CHEST/ABD/PEL W CLINICAL HISTORY: concern for lung CA, mets to brain. TECHNIQUE: Imaging Protocol: Axial computed tomography images with coronal and sagittal reformatted images were created and reviewed. Computer aided detection (CAD) was utilized. CONTRAST MATERIAL: Intravenous: Omnipaque 350 Contrast volume:100 ml Oral: / no COMPARISON: CR XR CHEST 2V PA LATERAL from 12/08/[address] UPPER EXTREMITY LT W from 05/09/2024 CR,XR XR CHEST 2V PA LATERAL from 05/09/2024 FINDINGS: CHEST: Pulmonary parenchyma: Bilateral diffuse last infiltrates in both lobes with peripheral and basilar sp aring. Diffuse interlobular septal thickening. Question of multiple cystic spaces . 8 millimeter n odule noted in the left upper lobe. This shows significant improvement compared with the April m. Tracheobronchial tree: No bronchiectasis. No mucous plugging.No bronchial wall thickening. Pleura: No effusion or pneumothorax. Mediastinum: Within normal limits. Pulmonary arteries: No visible emboli. Cardiovascular: The heart size is normal. No pericardial effusion. Thoracic aorta non-dilated. Bones: Unremarkable for age. No lytic or blastic lesions.No compression fractures. Soft tissues: Unremarkable. ABDOMEN and PELVIS: Liver: Normal density. No suspicious mass. Gallbladder and biliary tract: No evidence of stones or wall thickening. No biliary dilatation. Pancreas: Normal density, no abnormal calcifications or inflammatory process. Spleen: Normal. Kidneys: Normal size, contour and axis. No radiodense stones. No obstructive uropathy. No suspicious masses seen. Adrenal glands: No masses seen. Aorta: Abdominal portion non-dilated. Severe atherosclerotic changes. Severe atherosclerotic changes of the bilateral common iliac arteries. The right common iliac artery appears occluded. The right internal and external iliac arteries are normal diameter and show blood flow. There is also stenosis of the left common iliac artery. Lymph nodes: Within normal limits. Soft tissues: Unremarkable. Bladder: Unremarkable. Bowel: No obstruction or bowel wall thickening. Peritoneal cavity: No ascites. No focal collection. No mesenteric inflammatory response. No free ai r. Bones: No destructive lesions. Large central disc herniation at L3-4 causing central canal stenosis. Severe narrowing of the L5-S1 disc space. Reproductive organs: Unremarkable for age. IMPRESSION: Diffuse ground-glass opacities with septal thickening. Findings were present in on the April upper extremity CT. The findings are suspicious with chronic infection due to an atypical organism. Pne umocystis pneumonia is a possibility in an immunocompromised patient. 8 millimeter left upper lobe n odule with improvement in appearance from prior exam. No acute abnormality in the abdomen or pelvis. No evidence of metastatic disease. Occlusion of the right common iliac artery with reconstitution of the internal and external a iliac arteries. RADIATION DOSE DELIVERED: 691.93mGy.cm Total DLP DATA REPOSITORY: All CT scans at this facility are submitted to the National Radiology Data Registry (NRDR) Dose Index Registry (DIR) with the [employer] (ACR). RADIATION OPTIMIZATION: All CT scans at this facility use at least one of these dose optimization te chniques: automated exposure control; mA and/or kV adjustment per patient size (includes targeted exa ms where dose is matched to clinical indication); or iterative reconstruction.
--- NOTE | 2024-08-07 22:20 | ED.GENADUL_ITS ---
Discharge Plan Discharge Details Chief Complaint: Seizure Primary Care Provider: Edmond Villasenor ED Provider: Shaylee Zaragoza Home Meds and New Rx's Prescriptions: No Action ibuprofen 800 mg tablet 800 mg PO DIRECTED Qty: 90 3RF Rx Instructions: TAKE AT ONSET OF MIGRAINE magnesium 200 mg tablet 200 mg PO HS cholecalciferol (vitamin D3) 125 mcg (5,000 unit) capsule 125 mcg PO DAILY vitamin B complex-folic acid [Super B Maxi Complex] 0.4 mg tablet 1 tab PO DAILY aspirin 81 mg tablet,delayed release (DR/EC) 81 mg PO DAILY meclizine 25 mg tablet 25 mg PO TID PRN (Reason: dizziness) Qty: 20 0RF atorvastatin 20 mg tablet 20 mg PO QHS Qty: 90 3RF lisinopril 20 mg tablet 20 mg PO DAILY Qty: 90 3RF tadalafil 10 mg tablet 10 mg PO DAILY PRN (Reason: sexual activity) Qty: 30 3RF Rx Instructions: administer approximately 30min before sexual activity; do not use more than 1 dose per 24hrs HPI General Date/Time Provider Initiated Documentation: 08/07/24 19:32 . HPI Narrative: 54-year-old male with tobacco use, hyperlipidemia, hypertension, and erectile dysfunction, presenting with head and sinus pressure for 3-4 weeks. Reports head pressure and two episodes of altered mental status in the past week. First episode last week with difficulty walking; second episode this evening after bath, with loss of consciousness, posturing, tonic-clonic activity, and delayed responsiveness (~2 minutes). No documented seizure history. Noticed unusual smell before both episodes. Currently has head pressure, no changes in vision, speech, or sensation. Feels weak but at baseline. Consumes alcohol daily, no withdrawal symptoms, has not stopped drinking. No illicit substance use, smokes tobacco daily. Experiencing sinus and ear discomfort for several weeks. Treated with Augmentin for suspected sinusitis, no improvement. Related Data Home Medications ?Medication ?Instructions ?Recorded ?Confirmed ibuprofen 800 mg tablet 800 mg PO DIRECTED #90 tabs 03/16/23 08/07/24 aspirin 81 mg tablet,delayed 81 mg PO DAILY 11/23/23 08/07/24 release cholecalciferol (vitamin D3) 125 125 mcg PO DAILY 11/23/23 08/07/24 mcg (5,000 unit) capsule magnesium 200 mg tablet 200 mg PO HS 11/23/23 08/07/24 vitamin B complex-folic acid 0.4 1 tab PO DAILY 11/23/23 08/07/24 mg tablet (Super B Maxi Complex) atorvastatin 20 mg tablet 20 mg PO QHS #90 tabs 03/12/24 08/07/24 lisinopril 20 mg tablet 20 mg PO DAILY #90 tabs 03/12/24 08/07/24 tadalafil 10 mg tablet 10 mg PO DAILY PRN sexual activity 04/07/24 08/07/24 #30 tabs meclizine 25 mg tablet 25 mg PO TID PRN dizziness #20 tabs 08/01/24 08/07/24 Previous Rx's ?Medication ?Instructions ?Recorded ibuprofen 800 mg tablet 800 mg PO DIRECTED #90 tabs 03/16/23 atorvastatin 20 mg tablet 20 mg PO QHS #90 tabs 03/12/24 lisinopril 20 mg tablet 20 mg PO DAILY #90 tabs 03/12/24 tadalafil 10 mg tablet 10 mg PO DAILY PRN sexual activity 04/07/24 #30 tabs meclizine 25 mg tablet 25 mg PO TID PRN dizziness #20 tabs 08/01/24 Allergies Allergy/AdvReac Type Severity Reaction Status Date / Time No Known Allergies Allergy Verified 08/07/24 19:29 General Stated Complaint: Seizure FRANKIE: 3 Exam Narrative Exam Narrative: General Appearance: Alert and oriented x4. Vital signs: Within normal limits. HEENT: Pupils equal, round, reactive to light and accommodation. Extraocular muscles intact. Tympanic membranes clear bilaterally. No visible trauma. No carotid bruit. Respiratory: Lungs have scattered crackles. Cardiovascular: Regular heart rhythm. Gastrointestinal: No abdominal tenderness. Neurological: Negative [id number], heel-perez, pronator drift. Skin: Warm and dry, no rash. Course Vital Signs Vital signs: Vital Signs Temperature 37 C 08/07/24 19:24 Pulse 77 08/07/24 19:24 Respiratory Rate 20 08/07/24 19:24 Blood Pressure 156/86 H 08/07/24 19:24 Pulse Oximetry 98 08/07/24 19:24 Temperature 37 C 08/07/24 19:24 Pulse 61 08/07/24 21:01 Pulse 62 08/07/24 21:01 Respiratory Rate 18 08/07/24 21:01 Respiratory Effort Normal, Non-Labored 08/07/24 19:50 Respiratory Depth Normal 08/07/24 19:50 Respiratory Pattern Normal 08/07/24 19:50 Blood Pressure 155/75 H 08/07/24 21:01 Blood Pressure Mean 102 08/07/24 21:01 Pulse Oximetry 96 08/07/24 21:01 Oxygen Delivery Method Room Air 08/07/24 19:24 Oxygen Flow Rate 0 08/07/24 19:24 Pain Level 6 08/07/24 19:24 Lab/Test Results Lab/Test Results: Laboratory Tests Range/Units 08/07/24 08/07/24 19:40 21:25 WBC (4.4-10.8) 10^3/uL 12.67 H RBC (4.36-5.78) 10^6/uL 5.29 Hgb (13.5-17.5) g/dL 16.7 Hct (40.0-50.0) % 48.2 MCV (80-95) fL 91 MCH (27.0-33.0) pg 31.6 MCHC (32.0-36.0) % 34.6 RDW (11.8-14.1) % 12.3 Plt Count (130-400) 10^3/uL 330 MPV (8.0-11.0) fL 8.4 Immature Gran % % 0.5 Neutrophils % % 69.1 Lymphocytes % % 17.3 Monocytes % % 9.1 Eosinophils % % 3.2 Basophils % % 0.8 Nucleated RBC % (0.0-0.3) % 0.0 Absolute Neutrophils (1.2-6.7) 10^3/uL 8.75 H Absolute Lymphocytes (1.2-3.4) 10^3/uL 2.19 Absolute Monocytes (0.1-0.8) 10^3/uL 1.15 H Absolute Eosinophils (0.0-0.7) 10^3/uL 0.41 Absolute Basophils (0.0-0.2) 10^3/uL 0.10 PT (9.1-11.1) sec 9.7 INR (0.9-1.1) 1.0 Sodium (136-145) mmol/L 131 L Potassium (3.5-5.1) mmol/L 3.6 Chloride (98-107) mmol/L 94 L Carbon Dioxide (21.0-32.0) mmol/L 25.5 Anion Gap (3-11) mmol/L 11.5 H BUN (7-18) mg/dL 4 L Creatinine (0.70-1.30) mg/dL 0.8 Est GFR (CKD-EPI 2020) (mL/min/1.73m2) 105.82 Glucose (74-106) mg/dL 99 Calcium (8.5-10.1) mg/dL 9.4 Magnesium (1.8-2.4) mg/dL 1.9 Total Bilirubin (0.2-1.0) mg/dL 0.4 AST (15-37) U/L 27 ALT (16-63) U/L 41 Alkaline Phosphatase (46-116) U/L 182 H Total Protein (6.4-8.2) g/dL 7.8 Albumin (3.4-5.0) g/dL 3.6 Urine Color (Yellow) Yellow Urine Clarity (Clear) Clear Urine pH (5-8) 6.0 Ur Specific [place] (1.005-1.025) 1.010 Urine Protein (Neg-Trace) mg/dL Negative Urine Ketones (Negative) mg/dL Negative Urine Blood (Negative) Negative Urine Nitrite (Negative) Negative Urine Bilirubin (Negative) Negative Urine Urobilinogen (Up to 0.2) mg/dL 0.2 Ur Leukocyte Esterase (Negative) Negative Urine Glucose (Negative) mg/dL Negative Urine Opiates Screen (Negative) Negative Urine Methadone Screen (Negative) Negative Ur Barbiturates Screen (Negative) Negative Ur Tricyclics Screen (Negative) Negative Ur Amphetamines Screen (Negative) Negative U Benzodiazepines Scrn (Negative) Negative Urine Cocaine Screen (Negative) Negative Ur THC Screen (Negative) Negative Ethyl Alcohol (<10) mg/dL 23.9 H Medical Decision Making Laboratory: Mild leukocytosis (12,000), gap 11.5, normal creatinine, mild elevation in alk phos (182). Imaging: CT brain shows multiple focal areas of mass vs. abscess. CT chest, abdomen, pelvis show small partially confluent thick-walled cystic cavities vs. bronchiectasis with diffuse interlobular septal thickening and groundglass abnormalities. Suspected chronic severe pulmonary infection secondary to atypical organism and immunocompromised state. Mass effect of ventricles from lesions on CT brain with leftward midline shift (3 mm) superior to third ventricle with vasogenic edema. Initial Assessment: 54-year-old male with history of tobacco use, hyp erlipidemia, hypertension, erectile dysfunction, presents with head and sinus pressure for the past 3 to 4 weeks. Two episodes of altered mental status in the past week, including one with loss of consciousness and tonic-clonic activity. Unusual smell noted prior to episodes. No improvement with Augmentin for suspected sinusitis. Currently feeling weak, drinks alcohol daily, smokes tobacco daily, denies vision change, speech or sensation change. Differential Diagnosis: - Altered mental status: Ordered CTA head and neck due to dizziness and pressure. Blood work: mild leukocytosis (12,131), gap 11.5, normal creatinine, slight elevation in alk phos (182). CT brain: multiple focal areas suggestive of mass or abscess. Discussed with radiologist; recommended CT chest, abdomen, pelvis. Results: small partially confluent thick-walled cystic cavities vs. bronchiectasis with diffuse interlobular septal thickening and groundglass abnormalities. Suspected chronic severe pulmonary infection secondary to atypical organism and immunocompromised state. Mass effect of ventricles from lesions on CT brain with leftward midline shift (3 mm) superior to third ventricle with vasogenic edema. Seizure precautions maintained. Discussed with neurosurgery fellow; requested review of CT scans before further decisions. Return call placed to [facility] for potential transfer. - Suspected seizures: Administered Keppra loading dose due to concerns about seizures associated with brain abscesses. - Suspected infection: Initiated 2 g ceftriaxone for potential infectious etiology. Ordered HIV, LDH, procalcitonin, and blood cultures for further evaluation. ED Course: - Ordered CTA head and neck due to dizziness and pressure. - Blood work: mild leukocytosis (12,131), gap 11.5, normal creatinine, slight elevation in alk phos (182). - CT brain: multiple focal areas suggestive of mass or abscess. Discussed with radiologist; recommended CT chest, abdomen, pelvis. - CT chest, abdomen, pelvis: small partially confluent thick-walled cystic cavities vs. bronchiectasis with diffuse interlobular septal thickening and groundglass abnormalities. - Suspected chronic severe pulmonary infection secondary to atypical organism and immunocompromised state. - Mass effect of ventricles from lesions on CT brain with leftward midline shift (3 mm) superior to third ventricle with vasogenic edema. - Seizure precautions maintained. - Discussed with neurosurgery fellow; requested review of CT scans before further decisions. - Return call placed to [facility] for potential transfer. - Administered Keppra loading dose due to concerns about seizures associated with brain abscesses. - Initiated 2 g ceftriaxone for potential infectious etiology. - Ordered HIV, LDH, procalcitonin, and blood cultures for further evaluation. - At [address] [facility] returned the phone call and neurosurgery and states they are refusing patient secondary to capacity - Patient made aware, will attempt to [facility] and [facility]la be transition to Dr. Davis Rodriguez pending acceptance to facility with neurosurgical capabilities Final Assessment: Patient presented with altered mental status, head pressure, and suspected seizures. Diagnostic imaging and blood work indicated potential brain abscesses and chronic severe pulmonary infection. Seizure precautions were maintained, and treatment for infectious etiology was initiated. Case discussed with neurosurgery fellow, and potential transfer to [facility] was arranged. Clinical Impression: - Altered mental status - Suspected seizures - Suspected infection Disposition: - Transfer: Return call placed to [facility] for potential transfer. MDM Components Evaluation: - Number of Differential Diagnoses or Management Options: Altered mental status, suspected seizures, suspected infection. - Amount and Complexity of Data Reviewed: CTA head and neck, blood work, CT brain, CT chest, abdomen, pelvis, HIV, LDH, procalcitonin, blood cultures. - Risk of Complication and Morbidity or Mortality: High risk due to potential brain abscesses, chronic severe pulmonary infection, and altered mental status. Quality:SDOH Health Related Social Needs: No Data to Display PFSH All Active Problems (Updated 06/09/24 @ 00:03 by [employer]) Follicular cyst of skin (Acute) Cellulitis of left upper arm (Acute) Chronic cough (Acute) Left inguinal hernia (Acute) Screening for malignant neoplasm of colon performed (Acute ~01/23/23) benign lymphoid tissue (lymph node) 10 years, [place] Hyperlipidemia (Acute) Smoker (Acute) 1 pack per day Erectile dysfunction (Acute) Insomnia (Acute 03/07/13) Hypertension (Chronic) Medical History (Updated 06/09/24 @ 00:03 by Sagoon) Axillary abscess Hx of cardiac murmur per pt.f/u with PCP Surgical History Hx of inguinal hernia repair (~01/2024) Left side History of colonoscopy (~01/23/23) H/O vasectomy Appendectomy (~1981) Family History Mother No problems noted. Father Asthma Heart disease Sister Asthma Son No problems noted. Daughter Asthma Maternal Grandfather , 76 Diabetes Paternal Grandfather , 37 No problems noted. Maternal Grandmother Heart disease Paternal Grandmother , 66 No problems noted. Social History Smoking/Tobacco Use Status: Current every day Tobacco Type: cigarettes Quit status: has quit before Second Hand Exposure: Yes Smoking risk assessment performed?: Yes Alcohol Intake: current Alcohol Intake frequency: a few times a week Alcohol type: beer Drug use: Never Substance use type: does not use Adopted: No Caregiver/Support person: No Foster care: No Household members: spouse Housing: house Number of Children: 4 number of grandchildren: 4 Communication Needs: None Education Level: high school Do you need help understanding health information?: Never current occupation: [employer] Pets and animals: Yes Pets and animals: dog(s) Sexually active: Yes Do you think of yourself as: straight/heterosexual Current gender identity: male What is your relationship status?: How often do you talk on the phone with friends or family?: three or more times per week How often do you get together with friends or relatives?: three or more times per week How often do you attend samaritan or holiness services?: 1-3 times per year Do you belong to any clubs or organized social groups?: no Panel score (0-1 are the most socially isolated patients): 2 What type of physical activity do you participate in: none Seatbelt use: always Helmet use: Yes Drive intox or ride w/intox emergency medical technician/driver: No Working smoke detector in home: Yes Firearms in home: Yes Do you feel safe at home: Yes Do you feel safe in your relationship?: Yes
--- NOTE | 2024-08-07 22:29 | DI.VRAD_ITS ---
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 As such, brain abnormality is more compatible with brain abscesses. Addendum created by Jose Juan Conroy MD on 08/07/2024 10:45:43 PM EDT: Findings discussed with Shaylee Zaragoza MD at time of interpretation. Initial report created on 08/07/2024 10:28:18 PM EDT: PROCEDURE INFORMATION: Exam: CTA Head Without And With Contrast, Arteriography Exam date and time: 08/07/2024 9:01 PM Age: 54 years old Clinical indication: Other: Dizziness, STRATTON, AMS TECHNIQUE: Imaging protocol: Computed tomographic angiography of the head without and with contrast. Exam focused on the arteries. 3D rendering (Not supervised by radiologist): MIP and/or 3D reconstructed images were created by the technologist. Contrast material: 350; Contrast volume: 70 ml; Contrast route: INTRAVENOUS (IV); COMPARISON: No relevant prior studies available. FINDINGS: ANTERIOR CIRCULATION: Right internal carotid artery: Intracranial segment is patent with no significant stenosis or occlusion. No aneurysm. Right middle cerebral artery: No occlusion or significant stenosis. No aneurysm. Right anterior cerebral artery: No occlusion or significant stenosis. No aneurysm. Left internal carotid artery: Intracranial segment is patent with no significant stenosis. No aneurysm. Left middle cerebral artery: No occlusion or significant stenosis. No aneurysm. Left anterior cerebral artery: No occlusion or significant stenosis. No aneurysm. POSTERIOR CIRCULATION: Right vertebral artery: No occlusion or significant stenosis. No aneurysm. Left vertebral artery: No occlusion or significant stenosis. No aneurysm. Basilar artery: No occlusion or significant stenosis. No aneurysm. Right posterior cerebral artery: No occlusion or significant stenosis. No aneurysm. Left posterior cerebral artery: No occlusion or significant stenosis. No aneurysm. Veins: Dural venous sinuses are patent. HEAD: Brain: There are multiple sizable bilateral complex and cystic rim enhancing lesions left frontal and right parieto-occipital brain with substantial associated vasogenic edema. Some of the lesions demonstrate nodular/masslike peripheral enhancement in addition to thin rim enhancement. Differential diagnosis is brain abscesses versus metastatic disease. MRI with diffusion-weighted imaging may be useful. No evidence of intracranial hemorrhage. Cerebral ventricles: There is mass effect on the ventricles from the lesions with edema and slight focal leftward midline shift of 3 mm at a level just superior to the 3rd ventricle. Bones: Unremarkable. No acute fracture. Orbital cavities: Orbits are unremarkable. Paranasal sinuses: Incidental sinus mucosal thickening present. No fluid levels to indicate sinusitis. Mastoid air cells: Mastoid air cells and middle ear cavities are clear. Soft tissues: Unremarkable. IMPRESSION: 1. There are multiple sizable bilateral complex and cystic rim enhancing lesions left frontal and right parieto-occipital brain with substantial associated vasogenic edema. Some of the lesions demonstrate nodular/masslike peripheral enhancement in addition to thin rim enhancement. Differential diagnosis is brain abscesses versus metastatic disease. MRI with diffusion-weighted imaging may be useful. 2. There is mass effect on the ventricles from the lesions with edema and slight focal leftward midline shift of 3 mm at a level just superior to the 3rd ventricle. 3. No acute vascular findings. PROCEDURE INFORMATION: Exam: CTA Neck Without And With Contrast Exam date and time: 08/07/2024 9:01 PM Age: 54 years old Clinical indication: Other: Dizziness, STRATTON, AMS TECHNIQUE: Imaging protocol: Computed tomographic angiography of the neck without and with contrast. Exam focused on the cervical segments of the vasculature. 3D rendering (Not supervised by radiologist): MIP and/or 3D reconstructed images were created by the technologist. Contrast material: 350; Contrast volume: 70 ml; Contrast route: INTRAVENOUS (IV); COMPARISON: CT UPPER EXTREMITY LT W 05/09/2024 5:50 PM FINDINGS: Right common carotid artery: Atherosclerosis of the right carotid bulb and proximal right internal carotid artery without significant luminal narrowing. No thrombosis or occlusion. Right internal carotid artery: See Right common carotid artery finding. Right external carotid artery: No occlusion or stenosis of the origin. Left common carotid artery: Atherosclerosis of the left carotid bulb and proximal left internal carotid artery without significant luminal narrowing. No thrombosis or occlusion. Left internal carotid artery: See Left common carotid artery finding. Left external carotid artery: No occlusion or stenosis of the origin. Right vertebral artery: No stenosis. No dissection or occlusion. Left vertebral artery: No stenosis. No dissection or occlusion. Soft tissues: Normal. No significant soft tissue swelling. Bones/joints: No acute fracture. Lungs: There is incompletely visualized severe diffuse extensive pulmonary parenchymal disease manifesting as diffuse intra and interlobular septal thickening and with confluence centrilobular/lobular ground-glass opacities in the lung apices. There are also tubular/branching thick-walled cystic lucencies suspicious for bronchiectasis, around which the ground-glass opacities near the lung apex are centered. Potential etiologies include lymphangitic carcinomatosis or superior chronic atypical pulmonary infection. Chest CT and abdomen/pelvis CT pending. IMPRESSION: No acute vascular findings. REFERENCES: NASCET CRITERIA. The degree of stenosis in the cervical segment of the internal carotid artery is based on NASCET criteria. Normal is no stenosis. Mild is less than 50% stenosis. Moderate is 50-69% stenosis. Severe is 70% to 99% stenosis. Total occlusion is no detectable patent lumen. Dictated and Authenticated by: Jose Juan Conroy MD. Orderin Mila June MD
--- NOTE | 2024-08-07 23:07 | DI.VRAD_ITS ---
PROCEDURE INFORMATION: Exam: CT Chest With Contrast; Diagnostic Exam date and time: 08/07/2024 10:27 PM Age: 54 years old Clinical indication: Other: Concern for lung CA, mets to brain TECHNIQUE: Imaging protocol: Diagnostic computed tomography of the chest with contrast. 3D rendering (Not supervised by radiologist): MIP and/or 3D reconstructed images were created by the technologist. Radiation optimization: All CT scans at this facility use at least one of these dose optimization techniques: automated exposure control; mA and/or kV adjustment per patient size (includes targeted exams where dose is matched to clinical indication); or iterative reconstruction. Contrast material: 350; Contrast volume: 100 ml; Contrast route: INTRAVENOUS (IV); COMPARISON: XR CHEST 2V PA LATERAL 05/09/2024 7:28 PM FINDINGS: Lungs: Extensive symmetric bilateral pulmonary abnormality with relative peripheral and basilar sparing, manifesting as innumerable small partially confluent thick-walled cystic cavities versus bronchiectasis, possibly both, with associated diffuse interlobular septal thickening and ground-glass abnormality, the latter of which is most pronounced in the lung apices. The appearance is most compatible with chronic severe pulmonary infection due to an atypical organism. Recommend correlation for immunocompromised state. Pleural spaces: No pneumothorax or pleural effusion. Heart: Unremarkable. No cardiomegaly. No pericardial effusion. Lymph nodes: Mildly prominent bilateral hilar lymph nodes measuring up to 1.2 cm in short axis, presumably reactive to pulmonary infection. No lymphadenopathy elsewhere to indicate lymphoma or metastatic disease. Vasculature: Thoracic aorta is unremarkable. Bones/joints: Unremarkable. No acute fracture. Soft tissues: Unremarkable. IMPRESSION: Extensive symmetric bilateral pulmonary abnormality with relative peripheral and basilar sparing, manifesting as innumerable small partially confluent thick-walled cystic cavities versus bronchiectasis, possibly both, with associated diffuse interlobular septal thickening and ground-glass abnormality, the latter of which is most pronounced in the lung apices. The appearance is most compatible with chronic severe pulmonary infection due to an atypical organism. Recommend correlation for immunocompromised state. PROCEDURE INFORMATION: Exam: CT Abdomen And Pelvis With Contrast Exam date and time: 08/07/2024 10:27 PM Age: 54 years old Clinical indication: Other: Concern for lung CA, mets to brain TECHNIQUE: Imaging protocol: Computed tomography of the abdomen and pelvis with contrast. 3D rendering (Not supervised by radiologist): MIP and/or 3D reconstructed images were created by the technologist. Radiation optimization: All CT scans at this facility use at least one of these dose optimization techniques: automated exposure control; mA and/or kV adjustment per patient size (includes targeted exams where dose is matched to clinical indication); or iterative reconstruction. Contrast material: 350; Contrast volume: 100 ml; Contrast route: INTRAVENOUS (IV); COMPARISON: XR CHEST 2V PA LATERAL 05/09/2024 7:28 PM FINDINGS: Liver: Normal. No mass. Gallbladder and biliary ducts: Normal. No calcified stones. No ductal dilation. Pancreas: Unremarkable. Spleen: Normal. Adrenal glands: Normal. No mass. Kidneys and ureters: Kidneys are normal aside from an incidental left renal cyst. Stomach and bowel: No bowel wall thickening or intestinal obstruction. No pneumatosis or portal/mesenteric venous gas. Appendix: Appendix not visualized. No evidence of appendicitis. Intraperitoneal space: No pneumoperitoneum or abscess. Vasculature: There is advanced atherosclerotic disease of the aorta and iliac arteries for patient age. Part of the right common iliac artery may actually be chronically occluded secondary to mixed atherosclerotic plaque; however, there is reconstitution. Lymph nodes: Unremarkable. Urinary bladder: Unremarkable as visualized. Reproductive: Unremarkable as visualized. Bones/joints: There is severe central canal stenosis at L3-L4 secondary to a partially calcified sizable central disc herniation. Moderate central canal stenosis at L5-S1 secondary to disc osteophyte complex. Soft tissues: Unremarkable. IMPRESSION: There is advanced atherosclerotic disease of the aorta and iliac arteries for patient age. Part of the right common iliac artery may actually be chronically occluded secondary to mixed atherosclerotic plaque; however, there is reconstitution. Findings discussed with Shaylee Zaragoza MD at time of interpretation. Dictated and Authenticated by: Jose Juan Conroy MD. Orderin Mila June MD
[2024-08-07] MEDS: cefTRIAXone 2 GM/50 ML BAG IVPB (23:16)
[2024-08-07 23:17] LABS: ESR 8 mm/hr (0-20)
[2024-08-07 23:29] LABS: C-Reactive Protein 0.71 mg/dL (<or=0.5)
[2024-08-07 23:32] LABS: LDH 236 U/L (85-227)
[2024-08-07 23:42] LABS: HIV 1/2 Ab Rapid Negative (Negative); Procalcitonin < 0.10 ng/mL
--- NOTE | 2024-08-07 23:57 | W.EDPROG ---
Date of service: 08/07/24 Time of Service: 23:57 Medical Decision Making Patient was signed out to me by my colleague Shayleelester Zaragoaz. Please refer to her HPI, physical exam, assessment and plan. At time of signout, [facility] had just called back and discussed the case with Shayleelester Zaragoza. They state that they do not have any room or capacity at this time, are refusing transfer, and recommend transfer to a facility with MRI and neurosurgery. We contacted the [facility] and they are also at capacity, however their neurosurgeon Dr. Martini reviewed the case, he recommends transfer ED to ED. Spoke with ED attending Dr. Jha. She accepts the patient for transfer. I have extensively reviewed the treatment plan with the patient. I have addressed all patient concerns at this time. I have also discussed the plan with the admitting physician and they agree with the current assessment and plan and have agreed to assume responsibility for the patient. All parties demonstrate verbal understanding and agreement with our assessment and plan at this time. The documentation in this chart was dictated using [email or web address] dictation software. Please excuse any dictation errors. At time of transfer the patient was reassessed and continued to demonstrate No signs of acute respiratory distress requiring intubation, hemodynamic instability requiring pressor support, or rapidly declining mental status. Additionally I did start the patient on vancomycin, metronidazole, doxycycline for the infectious component. Quality:SDOH Health Related Social Needs: No Data to Display Critical Care Time Critical Care Time Critical Care Time: Yes Total Critical Care Time: 45 Attestation: Upon my evaluation, this patient had a high probability of imminent or life-threatening deterioration, which required my direct attention, intervention, and personal management. I have personally provided 45 minutes of critical care time exclusive of time spent on separately billable procedures. Time includes review of laboratory data, radiology results, discussion with consultants, and monitoring for potential decompensation. Interventions were performed as documented. Discharge Plan Disposition Patient Disposition: Transfer-Acute Inpatient Care Specific Acute Inpt Facility: [facility] Condition: Serious Discharge Details Chief Complaint: Seizure Clinical Impression: Seizure, Brain mass, Lung infection Primary Care Provider: Edmond Villasenor ED Provider: Davis Rodriguez Home Meds and New Rx's Prescriptions: No Action ibuprofen 800 mg tablet 800 mg PO DIRECTED Qty: 90 3RF Rx Instructions: TAKE AT ONSET OF MIGRAINE magnesium 200 mg tablet 200 mg PO HS cholecalciferol (vitamin D3) 125 mcg (5,000 unit) capsule 125 mcg PO DAILY vitamin B complex-folic acid [Super B Maxi Complex] 0.4 mg tablet 1 tab PO DAILY aspirin 81 mg tablet,delayed release (DR/EC) 81 mg PO DAILY meclizine 25 mg tablet 25 mg PO TID PRN (Reason: dizziness) Qty: 20 0RF atorvastatin 20 mg tablet 20 mg PO QHS Qty: 90 3RF lisinopril 20 mg tablet 20 mg PO DAILY Qty: 90 3RF tadalafil 10 mg tablet 10 mg PO DAILY PRN (Reason: sexual activity) Qty: 30 3RF Rx Instructions: administer approximately 30min before sexual activity; do not use more than 1 dose per 24hrs
[2024-08-08] VITALS (13 sets, daily range): BP systolic 109–127; BP diastolic 55–63; PULSE 59–96; RESP 15–34; O2SAT 96–97
[2024-08-08] MEDS: DOXYCYCLINE 100 MG in Normal Saline 100 ML IVPB (00:34)
[2024-08-08] MEDS: metroNIDAZOLE 500 MG/100 ML BAG 100 MG IVPB (00:34)
--- NOTE | 2024-08-08 04:55 | NUR.NOTE ---
Nursing Note: staff from [facility] called, requesting the medication and times he received them prior to tx.
[2024-08-09 10:14] LABS: HIV-1/2 Ag & Ab Screen Negative (Negative)
[2024-08-09 12:12] LABS: Syphilis Serology (RPR) Negative (Negative)
[2024-08-12 15:41] LABS: Misc Referral (UVM) See Comments
== END 2024-08-08 01:57 | disposition short-term general hospital (02) ==
PROVIDERS: Emergency Medicine; Physician Assistant; Emergency Provider Student in an Organized Health Care Education/Training Program; PCP Nurse Practitioner Family
DX: R56.9 Unspecified convulsions (principal); G93.89 Other specified disorders of brain; J18.9 Pneumonia, unspecified organism; R41.82 Altered mental status, unspecified
CPT/HCPCS: 99291; 96375; 36415; 00123; 70496; 70498; 74177; 80053; 80307; 84145; 85652; 87040; 87389; 93005; 96361; 96365; 96367; 71260; 80320; 81003; 83615; 83735; 85025; 85610; 86140; 86359; 86360; 86592; 93010; J0131; J0696; J0780; J1836; J1953; J3490

== ENCOUNTER 2024-08-22 16:00 | Outpatient (REF) | payer BC, SELFPAY ==
[2024-08-22 13:12] LABS: Absolute Basophil Count 0.06 10^3/uL (0.0-0.2); Absolute Eosinophil Count 0.38 10^3/uL (0.0-0.7); Absolute Lymphocyte Count 2.47 10^3/uL (1.2-3.4); Absolute Monocyte Count 0.71 10^3/uL (0.1-0.8); Basophils % 0.9 %; Eosinophils % 5.4 %; HCT 41.1 % (40.0-50.0); HGB 14.1 g/dL (13.5-17.5); Lymphocytes % 35.2 %; MCH 30.8 pg (27.0-33.0); MCHC 34.3 % (32.0-36.0); MCV 90 fL (80-95); MPV 9.3 fL (8.0-11.0); Monocytes % 10.1 %; Neutrophils % 48.4 %; Platelet Count 186 10^3/uL (130-400); RBC 4.58 10^6/uL (4.36-5.78); RDW 12.9 % (11.8-14.1); RDW-SD 42.4 fL; WBC 7.02 10^3/uL (4.4-10.8)
[2024-08-22 13:28] LABS: ALT 55 U/L (16-63); AST 37 U/L (15-37); Albumin 3.5 g/dL (3.4-5.0); Alkaline Phosphatase 144 U/L (46-116); Anion Gap 8.2 mmol/L (3-11); BUN 9 mg/dL (7-18); Bilirubin, Total 0.3 mg/dL (0.2-1.0); CO2 23.8 mmol/L (21.0-32.0); CREATININE 1.1 mg/dL (0.70-1.30); Calcium 8.6 mg/dL (8.5-10.1); Chloride 100 mmol/L (98-107); Estimated GFR 80.27 (mL/min/1.73m2); Glucose 78 mg/dL (74-106); Potassium 3.6 mmol/L (3.5-5.1); Sodium 132 mmol/L (136-145); Total Protein 6.9 g/dL (6.4-8.2)
== END 2024-08-22 16:01 | disposition home or self-care (01) ==
LOC: LBN 16:00
PROVIDERS: PCP Nurse Practitioner Family; Visit Provider Internal Medicine Infectious Disease
DX: G06.0 Intracranial abscess and granuloma (principal)
CPT/HCPCS: 80053; 85025

== ENCOUNTER 2024-08-29 15:20 | Outpatient (REF) | payer BC, SELFPAY ==
[2024-08-29 16:41] LABS: Abs Immature Grans 0.01 10^3/uL (0.0-0.06); Absolute Basophil Count 0.06 10^3/uL (0.0-0.2); Absolute Eosinophil Count 0.36 10^3/uL (0.0-0.7); Absolute Lymphocyte Count 1.87 10^3/uL (1.2-3.4); Absolute Neutrophil Count 2.87 10^3/uL (1.2-6.7); Eosinophils % 6.2 %; HCT 40.7 % (40.0-50.0); HGB 13.9 g/dL (13.5-17.5); Immature Grans % 0.2 %; Lymphocytes % 32.4 %; MCH 31.4 pg (27.0-33.0); MCHC 34.2 % (32.0-36.0); MCV 92 fL (80-95); MPV 10.2 fL (8.0-11.0); Monocytes % 10.4 %; Neutrophils % 49.8 %; Platelet Count 121 10^3/uL (130-400); RBC 4.43 10^6/uL (4.36-5.78); RDW 13.2 % (11.8-14.1); RDW-SD 44.5 fL; WBC 5.77 10^3/uL (4.4-10.8)
[2024-08-29 16:58] LABS: ALT 53 U/L (16-63); AST 32 U/L (15-37); Albumin 3.6 g/dL (3.4-5.0); Alkaline Phosphatase 149 U/L (46-116); Anion Gap 8.9 mmol/L (3-11); BUN 11 mg/dL (7-18); Bilirubin, Total 0.3 mg/dL (0.2-1.0); CO2 24.1 mmol/L (21.0-32.0); CREATININE 1.2 mg/dL (0.70-1.30); Calcium 8.9 mg/dL (8.5-10.1); Chloride 101 mmol/L (98-107); Estimated GFR 72.31 (mL/min/1.73m2); Glucose 86 mg/dL (74-106); Potassium 4.5 mmol/L (3.5-5.1); Sodium 134 mmol/L (136-145); Total Protein 7.1 g/dL (6.4-8.2)
== END 2024-08-29 15:21 | disposition home or self-care (01) ==
LOC: LBN 15:20
PROVIDERS: PCP Nurse Practitioner Family; Visit Provider Internal Medicine Infectious Disease
DX: G06.0 Intracranial abscess and granuloma (principal); Z45.2 Encounter for adjustment and management of vascular access device; R56.9 Unspecified convulsions
CPT/HCPCS: 80053; 82565; 85025

== ENCOUNTER 2024-09-05 14:26 | Outpatient (REF) | payer BC, SELFPAY ==
[2024-09-05 15:13] LABS: Abs Immature Grans 0.06 10^3/uL (0.0-0.06); Absolute Basophil Count 0.09 10^3/uL (0.0-0.2); Absolute Eosinophil Count 0.23 10^3/uL (0.0-0.7); Absolute Lymphocyte Count 2.79 10^3/uL (1.2-3.4); Absolute Monocyte Count 0.81 10^3/uL (0.1-0.8); Absolute Neutrophil Count 4.04 10^3/uL (1.2-6.7); Basophils % 1.1 %; Eosinophils % 2.9 %; HCT 37.2 % (40.0-50.0); Immature Grans % 0.7 %; Lymphocytes % 34.8 %; MCH 31.9 pg (27.0-33.0); MCHC 34.9 % (32.0-36.0); MCV 91 fL (80-95); MPV 9.4 fL (8.0-11.0); Monocytes % 10.1 %; Neutrophils % 50.4 %; Nucleated RBC 0.2 % (0.0-0.3); Platelet Count 241 10^3/uL (130-400); RBC 4.08 10^6/uL (4.36-5.78); RDW 12.9 % (11.8-14.1); RDW-SD 42.6 fL; WBC 8.02 10^3/uL (4.4-10.8)
[2024-09-05 15:20] LABS: ALT 78 U/L (16-63); AST 48 U/L (15-37); Albumin 3.6 g/dL (3.4-5.0); Alkaline Phosphatase 179 U/L (46-116); Anion Gap 9.9 mmol/L (3-11); BUN 10 mg/dL (7-18); Bilirubin, Total 0.2 mg/dL (0.2-1.0); CO2 25.1 mmol/L (21.0-32.0); CREATININE 1.3 mg/dL (0.70-1.30); Calcium 9.1 mg/dL (8.5-10.1); Chloride 101 mmol/L (98-107); Estimated GFR 65.69 (mL/min/1.73m2); Glucose 92 mg/dL (74-106); Potassium 4.7 mmol/L (3.5-5.1); Sodium 136 mmol/L (136-145); Total Protein 7.1 g/dL (6.4-8.2)
== END 2024-09-05 14:27 | disposition home or self-care (01) ==
LOC: LBN 14:26
PROVIDERS: PCP Nurse Practitioner Family; Visit Provider Internal Medicine Infectious Disease
DX: G06.0 Intracranial abscess and granuloma (principal); R56.9 Unspecified convulsions
CPT/HCPCS: 80053; 85025

== ENCOUNTER 2024-09-12 15:37 | Outpatient (REF) | payer BC, SELFPAY ==
[2024-09-12 16:05] LABS: Abs Immature Grans 0.03 10^3/uL (0.0-0.06); Absolute Basophil Count 0.07 10^3/uL (0.0-0.2); Absolute Eosinophil Count 0.24 10^3/uL (0.0-0.7); Absolute Lymphocyte Count 2.41 10^3/uL (1.2-3.4); Absolute Monocyte Count 0.62 10^3/uL (0.1-0.8); Absolute Neutrophil Count 4.03 10^3/uL (1.2-6.7); Basophils % 0.9 %; Eosinophils % 3.2 %; HCT 38.7 % (40.0-50.0); HGB 13.4 g/dL (13.5-17.5); Immature Grans % 0.4 %; Lymphocytes % 32.6 %; MCH 31.8 pg (27.0-33.0); MCHC 34.6 % (32.0-36.0); MCV 92 fL (80-95); Monocytes % 8.4 %; Neutrophils % 54.5 %; Platelet Count 386 10^3/uL (130-400); RBC 4.22 10^6/uL (4.36-5.78); RDW 14.9 % (11.8-14.1); RDW-SD 49.1 fL
[2024-09-12 16:29] LABS: ALT 126 U/L (16-63); AST 59 U/L (15-37); Albumin 3.7 g/dL (3.4-5.0); Alkaline Phosphatase 190 U/L (46-116); BUN 12 mg/dL (7-18); Bilirubin, Total 0.2 mg/dL (0.2-1.0); CREATININE 1.2 mg/dL (0.70-1.30); Calcium 9.2 mg/dL (8.5-10.1); Chloride 102 mmol/L (98-107); Estimated GFR 72.31 (mL/min/1.73m2); Glucose 86 mg/dL (74-106); Potassium 4.9 mmol/L (3.5-5.1); Sodium 136 mmol/L (136-145); Total Protein 7.2 g/dL (6.4-8.2)
== END 2024-09-12 15:38 | disposition home or self-care (01) ==
LOC: LBN 15:37
PROVIDERS: PCP Nurse Practitioner Family; Visit Provider Physician Assistant
DX: G06.0 Intracranial abscess and granuloma (principal); Z45.2 Encounter for adjustment and management of vascular access device; Z79.2 Long term (current) use of antibiotics
CPT/HCPCS: 80053; 85025

== ENCOUNTER 2024-09-19 18:16 | Outpatient (REF) | payer BC, SELFPAY ==
[2024-09-19 16:37] LABS: Abs Immature Grans 0.01 10^3/uL (0.0-0.06); Absolute Basophil Count 0.04 10^3/uL (0.0-0.2); Absolute Eosinophil Count 0.21 10^3/uL (0.0-0.7); Absolute Lymphocyte Count 2.06 10^3/uL (1.2-3.4); Absolute Monocyte Count 0.67 10^3/uL (0.1-0.8); Absolute Neutrophil Count 3.06 10^3/uL (1.2-6.7); Basophils % 0.7 %; Eosinophils % 3.5 %; HCT 41.8 % (40.0-50.0); HGB 14.1 g/dL (13.5-17.5); Immature Grans % 0.2 %; MCH 31.5 pg (27.0-33.0); MCHC 33.7 % (32.0-36.0); MCV 93 fL (80-95); MPV 8.7 fL (8.0-11.0); Monocytes % 11.1 %; Neutrophils % 50.5 %; Platelet Count 350 10^3/uL (130-400); RBC 4.48 10^6/uL (4.36-5.78); RDW 14.9 % (11.8-14.1); RDW-SD 51.8 fL; WBC 6.05 10^3/uL (4.4-10.8)
[2024-09-19 16:51] LABS: ALT 162 U/L (16-63); AST 49 U/L (15-37); Albumin 3.8 g/dL (3.4-5.0); Alkaline Phosphatase 172 U/L (46-116); Anion Gap 10.9 mmol/L (3-11); BUN 11 mg/dL (7-18); Bilirubin, Total 0.4 mg/dL (0.2-1.0); CO2 22.1 mmol/L (21.0-32.0); CREATININE 1.3 mg/dL (0.70-1.30); Calcium 8.8 mg/dL (8.5-10.1); Chloride 101 mmol/L (98-107); Estimated GFR 65.69 (mL/min/1.73m2); Glucose 103 mg/dL (74-106); Potassium 4.3 mmol/L (3.5-5.1); Sodium 134 mmol/L (136-145); Total Protein 7.2 g/dL (6.4-8.2)
== END 2024-09-19 18:17 | disposition home or self-care (01) ==
LOC: LBN 18:16
PROVIDERS: PCP Nurse Practitioner Family; Visit Provider Physician Assistant
DX: G06.0 Intracranial abscess and granuloma (principal); R56.9 Unspecified convulsions
CPT/HCPCS: 80053; 85025

== ENCOUNTER 2024-09-26 17:20 | Outpatient (REF) | payer BC, SELFPAY ==
[2024-09-26 14:02] LABS: Abs Immature Grans 0.02 10^3/uL (0.0-0.06); Absolute Basophil Count 0.06 10^3/uL (0.0-0.2); Absolute Eosinophil Count 0.23 10^3/uL (0.0-0.7); Absolute Lymphocyte Count 2.29 10^3/uL (1.2-3.4); Absolute Monocyte Count 0.65 10^3/uL (0.1-0.8); Absolute Neutrophil Count 3.42 10^3/uL (1.2-6.7); Basophils % 0.9 %; Eosinophils % 3.4 %; HCT 44.3 % (40.0-50.0); HGB 14.9 g/dL (13.5-17.5); Immature Grans % 0.3 %; Lymphocytes % 34.3 %; MCH 31.1 pg (27.0-33.0); MCHC 33.6 % (32.0-36.0); MCV 93 fL (80-95); MPV 8.9 fL (8.0-11.0); Monocytes % 9.7 %; Neutrophils % 51.4 %; Platelet Count 255 10^3/uL (130-400); RBC 4.79 10^6/uL (4.36-5.78); RDW 14.2 % (11.8-14.1); RDW-SD 48.3 fL; WBC 6.67 10^3/uL (4.4-10.8)
[2024-09-26 14:12] LABS: ALT 121 U/L (16-63); AST 50 U/L (15-37); Albumin 3.9 g/dL (3.4-5.0); Alkaline Phosphatase 156 U/L (46-116); Anion Gap 13.2 mmol/L (3-11); BUN 10 mg/dL (7-18); Bilirubin, Total 0.5 mg/dL (0.2-1.0); CO2 21.8 mmol/L (21.0-32.0); CREATININE 1.4 mg/dL (0.70-1.30); Calcium 8.9 mg/dL (8.5-10.1); Chloride 100 mmol/L (98-107); Glucose 87 mg/dL (74-106); Potassium 4.2 mmol/L (3.5-5.1); Sodium 135 mmol/L (136-145); Total Protein 7.3 g/dL (6.4-8.2)
== END 2024-09-26 17:21 | disposition home or self-care (01) ==
LOC: LBN 17:20
PROVIDERS: PCP Nurse Practitioner Family; Visit Provider Physician Assistant
DX: G06.0 Intracranial abscess and granuloma (principal)
CPT/HCPCS: 80053; 85025

== ENCOUNTER 2024-11-01 08:51 | Outpatient (CLI) | payer BC, SELFPAY ==
[2024-11-01 16:48] LABS: ALT 58 U/L (16-63); AST 40 U/L (15-37); Albumin 3.7 g/dL (3.4-5.0); Alkaline Phosphatase 137 U/L (46-116); Anion Gap 14.1 mmol/L (3-11); BUN 14 mg/dL (7-18); Bilirubin, Total 0.3 mg/dL (0.2-1.0); CO2 18.9 mmol/L (21.0-32.0); Calcium 9.0 mg/dL (8.5-10.1); Chloride 102 mmol/L (98-107); Estimated GFR 90.00 (mL/min/1.73m2); Glucose 87 mg/dL (74-106); Potassium 4.1 mmol/L (3.5-5.1); Sodium 135 mmol/L (136-145); Total Protein 6.8 g/dL (6.4-8.2)
== END 2024-11-01 08:52 | disposition home or self-care (01) ==
LOC: LBO 08:52
PROVIDERS: PCP Nurse Practitioner Family; Visit Provider Internal Medicine Infectious Disease
DX: A43.9 Nocardiosis, unspecified (principal)
CPT/HCPCS: 36415; 80053; 85027; 82465; 84478

== ENCOUNTER 2025-01-12 04:03 | Outpatient (CLI) | payer BC, SELFPAY ==
[2025-01-12 08:06] LABS: Anion Gap 16.4 mmol/L (3-11); BUN 7 mg/dL (7-18); CO2 17.6 mmol/L (21.0-32.0); Calcium 8.7 mg/dL (8.5-10.1); Chloride 102 mmol/L (98-107); Estimated GFR 90.00 (mL/min/1.73m2); Glucose 94 mg/dL (74-106); Potassium 4.2 mmol/L (3.5-5.1); Sodium 136 mmol/L (136-145)
== END 2025-01-12 04:04 | disposition home or self-care (01) ==
LOC: LBO 04:03
PROVIDERS: PCP Nurse Practitioner Family; Visit Provider Internal Medicine Infectious Disease
DX: G06.0 Intracranial abscess and granuloma (principal)
CPT/HCPCS: 36415; 80048

== ENCOUNTER 2025-01-30 03:56 | Outpatient (CLI) | payer BC, SELFPAY ==
[2025-01-30 14:22] LABS: Anion Gap 13.0 mmol/L (3-11); BUN 7 mg/dL (7-18); CO2 20.0 mmol/L (21.0-32.0); Calcium 9.4 mg/dL (8.5-10.1); Chloride 100 mmol/L (98-107); Estimated GFR 80.27 (mL/min/1.73m2); Glucose 98 mg/dL (74-106); Potassium 4.9 mmol/L (3.5-5.1); Sodium 133 mmol/L (136-145)
== END 2025-01-30 03:57 | disposition home or self-care (01) ==
LOC: LBO 03:56
PROVIDERS: PCP Nurse Practitioner Family; Visit Provider Internal Medicine Infectious Disease
DX: G06.0 Intracranial abscess and granuloma (principal)
CPT/HCPCS: 36415; 80048

== ENCOUNTER 2025-02-24 17:24 | Outpatient (REF) | payer BC, SELFPAY ==
[2025-02-24 17:51] LABS: Glucose Negative (Negative)
[2025-02-24 17:57] LABS: C & S Indicated? No; WBC 0-2 HPF (0-5)
== END 2025-02-24 17:25 | disposition home or self-care (01) ==
LOC: LBN 17:24
PROVIDERS: PCP Nurse Practitioner Family; Visit Provider Nurse Practitioner Family
DX: R52 Pain, unspecified (principal)
CPT/HCPCS: 81003; 81015

== ENCOUNTER 2025-03-03 00:18 | Outpatient (CLI) | payer BC, SELFPAY ==
[2025-03-03 07:24] LABS: Abs Immature Grans 0.05 10^3/uL (0.0-0.06); HCT 45.1 % (40.0-50.0); HGB 15.5 g/dL (13.5-17.5); Immature Grans % 0.6 %; MCH 34.2 pg (27.0-33.0); MCHC 34.4 % (32.0-36.0); MCV 100 fL (80-95); MPV 7.8 fL (8.0-11.0); Platelet Count 339 10^3/uL (130-400); RBC 4.53 10^6/uL (4.36-5.78); RDW 13.2 % (11.8-14.1); RDW-SD 48.9 fL; WBC 8.71 10^3/uL (4.4-10.8)
[2025-03-03 08:36] LABS: Anion Gap 5.7 mmol/L (3-11); BUN 8 mg/dL (9-23); CO2 23.3 mmol/L (20.0-31.0); Calcium 8.9 mg/dL (8.3-10.6); Chloride 104 mmol/L (98-107); Glucose 104 mg/dL (74-106); Potassium 4.6 mmol/L (3.5-5.1); Sodium 133 mmol/L (136-145)
== END 2025-03-03 00:19 | disposition home or self-care (01) ==
LOC: LBO 00:18
PROVIDERS: PCP Nurse Practitioner Family; Visit Provider Nurse Practitioner Family
DX: E87.1 Hypo-osmolality and hyponatremia (principal); D72.829 Elevated white blood cell count, unspecified
CPT/HCPCS: 36415; 80048; 85025